=== PATIENT | female | born 1935 | race Hispanic/Latino ===

== ENCOUNTER 2017-04-13 19:22 | Inpatient (IN) | payer MEDICARE, OTHER ==
--- NOTE | 2017-04-13 20:02 | ED PDOC ---
Arrival/HPI - General Chief Complaint: GI Problem Time Seen by Provider: 04/13/17 19:23 Historian: Patient - History of Present Illness Narrative History of Present Illness (Text): 04/13/17 20:14 An 81 year old female, whose past medical history includes hypertension, chronic kidney disease, atrial fibrillation (not on anticoagulants) and iron deficiency, presents to the emergency department complaining of nausea and vomiting for the past few days. Patient reports decrease in appetite, dyspnea on exertion but denies any fevers, chills, abdominal pain, chest pain or any other complaints at this time. Time/Duration: < week Symptom Onset: Sudden Symptom Course: Unchanged Activities at Onset: Rest Context: Home Past Medical History - Provider Review Nursing Documentation Reviewed: Yes - Infectious Disease Hx of Infectious Diseases: None - Cardiac Hx Congestive Heart Failure: Yes Hx Hypertension: Yes - Pulmonary Hx Respiratory Disorders: No - Neurological Hx Neurological Disorder: No - HEENT Hx Cataracts: Yes (both removed) - Renal Other/Comment: history of kidney issues - Endocrine/Metabolic Hx Endocrine Disorders: No - Hematological/Oncological Hx Anemia: Yes - Musculoskeletal/Rheumatological Hx Arthritis: Yes - Gastrointestinal Hx Gastrointestinal Disorders: No - Genitourinary/Gynecological Hx Genitourinary Disorders: No - Psychiatric Hx Psychophysiologic Disorder: No Hx Substance Use: No - Surgical History Other/Comment: tonsilectomy - Anesthesia Hx Anesthesia: Yes Hx Anesthesia Reactions: No Hx Malignant Hyperthermia: No Family/Social History - Physician Review Nursing Documentation Reviewed: Yes Family/Social History: No Known Family HX Smoking Status: Never Smoked Hx Alcohol Use: No Hx Substance Use: No Allergies/Home Meds Allergies/Adverse Reactions: Allergies febuxostat Allergy (Verified 11/02/16 02:30) RASH Home Medications: Home Meds Medication Instructions Recorded Confirmed Epoetin Carroll [Procrit] 20,000 unit SUBCUT TUE 07/03/12 04/13/17 Aspirin [Ecotrin] 325 mg PO DAILY 11/03/15 04/13/17 Valsartan/Hydrochlorothiazide 1 each PO DAILY 10/27/16 04/13/17 [Diovan Hct 320-25 mg Tablet] Allopurinol [Zyloprim] 100 mg PO BID 04/13/17 04/13/17 Review of Systems - Physician Review All systems were reviewed & negative as marked: Yes - Review of Systems Constitutional: absent: Fevers, Other (chills) Respiratory: absent: SOB Cardiovascular: ROBERSON. absent: Chest Pain Gastrointestinal: Nausea, Vomiting, Appetite Changes (decrease). absent: Abdominal Pain Neurological: absent: Headache Physical Exam Vital Signs Reviewed: Yes Vital Signs Temp Pulse Resp BP Pulse Ox 04/13/17 23:36 87 16 114/61 95 04/13/17 20:44 79 18 131/69 98 04/13/17 19:33 18 04/13/17 19:31 97.8 F 88 16 133/70 98 Temperature: Afebrile Blood Pressure: Normal Pulse: Regular Respiratory Rate: Normal Appearance: Positive for: Well-Appearing, Non-Toxic, Comfortable Pain Distress: None Mental Status: Positive for: Alert and Oriented X 3 - Systems Exam Head: Present: Atraumatic, Normocephalic Pupils: Present: PERRL Extroacular Muscles: Present: EOMI Conjunctiva: Present: Normal Mouth: Present: Moist Mucous Membranes Neck: Present: Normal Range of Motion Respiratory/Chest: Present: Clear to Auscultation, Good Air Exchange. No: Respiratory Distress, Accessory Muscle Use Cardiovascular: Present: Tachycardic Abdomen: Present: Normal Bowel Sounds. No: Tenderness, Distention, Peritoneal Signs Back: Present: Normal Inspection Upper Extremity: Present: Normal Inspection. No: Cyanosis, Edema Lower Extremity: Present: Normal Inspection, Normal ROM. No: Edema Neurological: Present: GCS=15, CN II-XII Intact, Speech Normal Skin: Present: Warm, Dry, Normal Color. No: Rashes Psychiatric: Present: Alert, Oriented x 3, Normal Insight, Normal Concentration Medical Decision Making ED Course and Treatment: 04/13/17 20:00 Impression: An 81 year old female with nausea and vomiting. Plan: -- EKG -- chest xray -- labs -- Reassess and disposition Prior Visits: Notes and results from previous visits were reviewed. Patient last reported to the emergency department on 10/27/16 for evaluation of shortness of breath upon exertion. Patient discharged on 11/01/16. Progress Notes: Reviewed EKG, a fib at 85 bpm[address] Non-specific ST/T wave changes. 04/13/17 23:15 Reviewed radiology, Chest X-ray shows: - Cardiomegaly, with possible mild/early pulmonary vascular congestion. No evidence diffuse pulmonary edema. Recommend clinical correlation. - Suspect a hiatal hernia. - See above for remaining findings. 04/13/17 23:[address] Waite, who is aware and agrees with plan. States to place pt under Dr. Georges's service. Pt will go to telemetry observation for CHF and intractable vomiting. - Lab Interpretations Lab Results: 04/13/17 20:10 04/13/17 20:10 Lab Results 04/13/17 20:10: WBC 15.2 H D, RBC 3.71, Hgb 10.6 L, Hct 36.5, MCV 98.4, MCH 28.6 , MCHC 29.0 L, RDW 20.6 H, Plt Count 470 H, MPV 11.6 H 04/13/17 20:10: Sodium 140, Potassium 4.6, Chloride 105, Carbon Dioxide 26, Anion Gap 14, BUN 78 H, Creatinine 1.6 H, Est GFR ( Amer) 38, Est GFR ( Non-Af Amer) 31, Random Glucose 88, Calcium 9.3, Total Bilirubin 0.9, AST 66 H, ALT 29, Alkaline Phosphatase 98, Lactate Dehydrogenase 4754 H, Total Creatine Kinase 34 L, Troponin I 0.06, NT-Pro-B Natriuret Pep 55844 H, Total Protein 6.8 , Albumin 3.7, Globulin 3.1, Albumin/Globulin Ratio 1.2 04/13/17 20:10: PT 13.2 H, INR 1.22 H, APTT 30.1 I have reviewed the lab results: Yes - RAD Interpretation Narrative RAD Interpretations (Text): Chest X-ray shows: LIMITATIONS: Patient rotation. The left costophrenic angle is not included on the radiograph. LUNGS: Mild fullness of the central/perihilar pulmonary vessels is seen. This could be secondary to mild/early pulmonary vascular congestion. There is no evidence of diffuse pulmonary interstitial edema. No evidence of significant focal consolidation/infiltrate in the lungs. PLEURAL SPACE: No pneumothorax or pleural effusions seen, although the left costophrenic sulcus is not seen. HEART: Heart appears moderately to markedly enlarged. Heart size is not significantly changed. MEDIASTINUM: Round retrocardiac density is seen, which has central lucency. This is suspicious for a hiatal hernia. Mediastinal contour appears grossly normal, allowing for patient rotation. BONES/JOINTS: No acute bony abnormality visualized. VASCULATURE: Thoracic aorta is ectatic and calcified. IMPRESSION: - Cardiomegaly, with possible mild/early pulmonary vascular congestion. No evidence diffuse pulmonary edema. Recommend clinical correlation. - Suspect a hiatal hernia. - See above for remaining findings. Radiology Orders: 04/13/17 19:50 CHEST PORTABLE [RAD] Stat Panel Gluer: Radiologist - EKG Interpretation Interpreted by ED Physician: Yes Type: 12 lead EKG - Medication Orders Current Medication Orders: Ondansetron HCl (Zofran Inj) 4 mg IVP Q4H PRN PRN Reason: Nausea/Vomiting Stop: 04/14/17 09:00 Discontinued Medications Ondansetron HCl (Zofran Inj) 4 mg IVP ONCE ONE Stop: 04/13/17 22:15 Last Admin: 04/13/17 22:28 Dose: 4 mg - Scribe Statement The provider has reviewed the documentation as recorded by the Anshu Mckeon Provider Scribe Attestation: All medical record entries made by the Augustaibe were at my direction and personally dictated by me. I have reviewed the chart and agree that the record accurately reflects my personal performance of the history, physical exam, medical decision making, and the department course for this patient. I have also personally directed, reviewed, and agree with the discharge instructions and disposition. Disposition/Present on Arrival - Present on Arrival Any Indicators Present on Arrival: No History of DVT/PE: No History of Uncontrolled Diabetes: No Urinary Catheter: No History of Decub. Ulcer: No History Surgical Site Infection Following: None - Disposition Have Diagnosis and Disposition been Completed?: Yes Diagnosis: Intractable vomiting, CHF (congestive heart failure), Renal insufficiency Disposition: HOSPITALIZED Disposition Time: 00:01 Patient Plan: Observation Condition: STABLE Discharge Instructions (ExitCare): Heart Failure (ED) Referrals: Sharmila Waite MD [Primary Care Provider] - Follow up with primary
[2017-04-13 20:36] LABS: ALB/GLOB RATIO 1.2 (1.1-1.8); BILIRUBIN,TOTAL 0.9 mg/dL (0.2-1.3); CALCIUM 9.3 mg/dL (8.4-10.5); POTASSIUM 4.6 mmol/L (3.6-5.0); TOTAL PROTEIN 6.8 g/dL (5.8-8.3)
[2017-04-13 20:37] LABS: HEMATOCRIT 36.5 % (36.0-48.0); MEAN CELL VOLUME 98.4 fL (80.0-105.0); MEAN CORPUSCULAR HEMOGLOBIN 28.6 pg (25.0-35.0); MEAN PLATELET VOLUME 11.6 fl (7.0-11.0); RED CELL DISTRIBUTION WIDTH 20.6 % (11.5-14.5); WHITE BLOOD COUNT 15.2 10^3/ul (4.5-11.0)
[2017-04-13 20:38] LABS: INR 1.22 (0.93-1.08); PARTIAL THROMBOPLASTIN TIME 30.1 Seconds (23.7-30.8)
[2017-04-13 20:48] LABS: TROPONIN I 0.06 ng/mL
--- NOTE | 2017-04-13 22:44 | RAD ---
EXAM: XR Chest, 1 View CLINICAL HISTORY: 81 years old, female; Pain; Chest pain; Additional info: Nausea /vomiting TECHNIQUE: Frontal view of the chest. EXAM DATE/TIME: 04/13/2017 7:50 PM COMPARISON: Prior chest radiographs of 11/01/2016 FINDINGS: LIMITATIONS: Patient rotation. The left costophrenic angle is not included on the radiograph. LUNGS: Mild fullness of the central/perihilar pulmonary vessels is seen. This could be secondary to mild/early pulmonary vascular congestion. There is no evidence of diffuse pulmonary interstitial edema. No evidence of significant focal consolidation/infiltrate in the lungs. PLEURAL SPACE: No pneumothorax or pleural effusions seen, although the left costophrenic sulcus is not seen. HEART: Heart appears moderately to markedly enlarged. Heart size is not significantly changed. MEDIASTINUM: Round retrocardiac density is seen, which has central lucency. This is suspicious for a hiatal hernia. Mediastinal contour appears grossly normal, allowing for patient rotation. BONES/JOINTS: No acute bony abnormality visualized. VASCULATURE: Thoracic aorta is ectatic and calcified. IMPRESSION: - Cardiomegaly, with possible mild/early pulmonary vascular congestion. No evidence diffuse pulmonary edema. Recommend clinical correlation. - Suspect a hiatal hernia. - See above for remaining findings.
[2017-04-14 02:34] LABS: URINE BILIRUBIN NEGATIVE (NEGATIVE); URINE BLOOD SMALL (NEGATIVE); URINE GLUCOSE (UA) NEGATIVE (NEGATIVE); URINE KETONE NEGATIVE (NEGATIVE); URINE LEUKOCYTE ESTERASE NEGATIVE Leu/uL (NEGATIVE); URINE PROTEIN >=300 mg/dL (<30 mg/dL); URINE UROBILINOGEN 0.2 E.U./dL (<1 E.U./dL)
[2017-04-14 02:36] LABS: URINE APPEARANCE CLEAR (CLEAR)
[2017-04-14 02:37] LABS: URINE RBC 15 - 20 /hpf (0-2)
[2017-04-14 03:23] VITALS: BMI 47.7
[2017-04-14] MEDS ORDERED: metOLazone 2.5 MG TAB PO SCH ×2 (09:00→09:37)
--- NOTE | 2017-04-14 10:25 | CON ---
DATE: 04/14/2017 INDICATIONS: Shortness of breath, nausea, vomiting, chronic atrial fibrillation. HISTORY OF PRESENT ILLNESS: This is an 81-year-old woman known to me from a prior admission in 10/2016, admitted with several weeks of nausea and vomiting with poor appetite and a recent increasing dyspnea on exertion. She is admitted through the Emergency Room and is now on telemetry. She feels better this morning, but still notes mild nausea. Her breathing is better. There was no chest pain, orthopnea, PND, syncope, presyncope, lightheadedness, dizziness, vertigo, palpitations, fever, chills, cough, sputum production, hemoptysis, abdominal pain, diarrhea, constipation, melena. She does note chronic lower extremity edema which is a bit worse. PAST MEDICAL HISTORY: Notable for chronic atrial fibrillation. She is not on anticoagulation because it was judged to be too risky in the past. She has a history of hypertension, moderate aortic stenosis on her echocardiogram which also showed mild mitral regurgitation, moderate tricuspid regurgitation, moderate pulmonary hypertension and normal left ventricular function. She has chronic kidney disease, anemia, myeloproliferative disorder, gout, degenerative joint disease, urinary tract infections, cataracts, obesity. There is no history of rheumatic fever, myocardial infarction, angina, stroke, TIA or diabetes. CURRENT MEDICATIONS INCLUDE: Coreg, torsemide, Diovan HCT, aspirin, Zaroxolyn, allopurinol. ALLERGIES: SHE NOTES AN ALLERGY TO FEBUXOSTAT WHICH CAUSES A RASH. She gets Procrit injections by Dr. Waite. SOCIAL HISTORY: She lives at home. 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 She does not smoke. She does not drink. FAMILY HISTORY: Noncontributory. REVIEW OF SYSTEMS: Ten point review of systems otherwise unremarkable except as noted above. PHYSICAL EXAMINATION: GENERAL: She is a well-developed elderly woman lying in bed on telemetry in no acute distress. VITAL SIGNS: Notable for atrial fibrillation at 76 beats per minute. She is afebrile. Blood pressure 108/65, respirations 18-20, O2 sat 95% - 98% on room air and nasal cannula. HEENT: Reveals no neck vein distention, thyromegaly, or carotid bruit. Mucous membranes moist. Conjunctivae are pink. NECK: Supple. CHEST: Lung reese diminished breath sounds at the bases. HEART: Revealed an irregular rhythm, normal 1st and 2nd heart sounds. Soft systolic ejection murmur heard best along the left sternal border. PMI not palpable. ABDOMEN: Obese, soft, benign. Bowel sounds present. No mass, organomegaly, tenderness, rebound, guarding, CVA tenderness or palpable abdominal aortic aneurysm. EXTREMITIES: Revealed chronic lower extremity edema. NEUROLOGIC: She is awake, alert and oriented. SKIN: Warm and dry. No rash or cellulitis. PSYCHIATRIC: Normal as to mood and affect. LABORATORY AND IMAGING: A portable chest x-ray revealed cardiomegaly with possible mild pulmonary vascular congestion. EKG demonstrates atrial fibrillation, right bundle branch block, nonspecific ST wave changes, no change from previous EKG. White count 15,200, hemoglobin 10.6, hematocrit 36.5, platelet count 470,000. PT 13.2, INR 1.22, PTT 30.1. Electrolytes normal. BUN 78, creatinine 1.6. AST is 66, which is elevated, ALT is 29, alkaline phosphatase 98. CK 34, troponin 0.06. BNP 40,700. Urinalysis is noted. IMPRESSION: The patient is an 85-year-old woman admitted with shortness of breath, nausea and vomiting, which has become progressive. She is in chronic atrial fibrillation with a history of hypertension, aortic stenosis, chronic kidney disease, anemia, myeloproliferative disorder, gout and urinary tract infections. At this time, I agree with current plans. She is on telemetry. I would resume her usual medications including aspirin, Coreg, losartan to substitute for Diovan, Lasix to substitute for torsemide, Zaroxolyn and allopurinol. I will review her old records. We will monitor I's and O's, check stool for occult blood. She will have a GI evaluation. We will attempt to diurese her and monitor renal function carefully. I will follow along with you. I will order an echocardiogram. I will make additional recommendations based on her clinical course. Ric Howe MD cc: [id number] TT: 04/14/2017 10:24:43 Confirmation # [id number] Dictation # [id number] jn ANNA
--- NOTE | 2017-04-14 10:27 | CARD ---
APPROVED REPORT EKG Measurement Heart [id number] <Conclusion> Atrial fibrillation IRBBB NSSTW changes No change
--- NOTE | 2017-04-14 11:03 | CON ---
DATE: 04/14/2017 The patient admitted for Dr. Bruce Montano and Dr. Waite. REFERRING PHYSICIAN: Dr. Montano. REASON FOR CONSULTATION: Evaluation of a patient known to us from past evaluations who presents with prerenal azotemia in the setting of hypervolemia and CHF. HISTORY OF PRESENT ILLNESS: The patient is a pleasant 81-year-old white female with a history of hyp ertension, history of chronic kidney disease stage III/IV, history of atrial fibrillation, history of anemia, iron deficiency anemia, history of myelodysplastic syndrome, history of secondary hyperparat hyroidism, who presents with increasing shortness of breath and diarrhea. The patient is noted in th e Emergency Room to be in mild congestive heart failure. Her BUN was 70 with a creatinine of 1.6. T hese levels are actually better than her baseline levels as the patient remains on diuretic therapy w ith advanced prerenal azotemia. We are asked to evaluate the patient and to help manage her diuretic therapy and fluid management. PAST MEDICAL HISTORY: Significant for hypertension, history of chronic kidney disease stage III/IV w ith prerenal azotemia, history of atrial fibrillation, history of anemia, iron deficiency anemia, and myelodysplastic syndrome. History of secondary hyperparathyroidism. MEDICATIONS AT HOME: Include that of Procrit, Coreg, Ecotrin, Zyloprim, Zaroxolyn, Diovan/hydrochlor othiazide, Demadex, and Coreg. ALLERGIES: THE PATIENT IS ALLERGIC TO FEBUXOSTAT. MEDICATIONS: Presently in the hospital include that of aspirin, Coreg, losartan, Lasix IV, metolazon e, Zaroxolyn and allopurinol. SOCIAL HISTORY: No history of cigarette smoking, no history of alcohol use. FAMILY HISTORY: Reviewed with patient. Noncontributory. REVIEW OF SYSTEMS: GENERAL: The patient states weight has been stable. ENT: Denies any hearing or visual problems. PULMONARY: Positive for exertional dyspnea. CARDIAC: No chest pains, no palpitations. GASTROINTESTINAL: Positive for diarrhea. No nausea, no vomiting, no constipation, no abdominal pain . GENITOURINARY: Positive history of chronic kidney disease. ENDOCRINE: No history of diabetes. MUSCULOSKELETAL: No complaints. NEUROLOGIC: No past history of CVA, TIA, seizures or syncope. HEMATOLOGIC AND ONCOLOGIC: Positive anemia. Positive myelodysplastic syndrome. PSYCHIATRIC: History is negative. PHYSICAL EXAMINATION: GENERAL: The patient is currently sitting up in a chair. She appears to be comfortable. No shortne ss of breath. VITAL SIGNS: Blood pressure is 108/65, temperature 98.5, respiratory rate is 20 with a pulse of 76. Oxygen saturation is 95% on 3 L of oxygen nasal cannula. HEENT: Shows her to be normocephalic, atraumatic. Conjunctivae are pale. Sclerae are nonicteric. Pupils equal, reactive to light and accommodation. Extraocular muscles are intact. Posterior pharyn x is normal. NECK: Supple without neck vein distention. No thyromegaly, no lymphadenopathy, no bruits. CHEST: Clear to auscultation and percussion with decreased breath sounds at the bases, no audible ra les, rhonchi or wheezing. CARDIOVASCULAR: Shows an irregular S1, S2, aortic stenosis, mitral regurgitation, tricuspid regurgit ation, no rub. ABDOMEN: Obese. Mild distention. Soft, nontender. Bowel sounds are normal. EXTREMITIES: Show 2+ to 3+ pitting edema of her lower extremity from the ankle up to the mid thigh. Diminished lower extremity pulses secondary to edema. LABORATORY DATA AND IMAGING: Admitting chest x-ray showed cardiomegaly with pulmonary vascular conge stion consistent with mild CHF. Admitting EKG showed atrial fibrillation, rate controlled. Labs: C BC: White blood cell count 15.2, hemoglobin 10.6, platelet count is 470,000. Coags 13.2. PT/INR 1. 22, PTT 30.1. Chemistries show normal electrolytes. BUN 70 with a creatinine of 1.6. Calcium level was 9.3. Slight elevation of AST at 66. LDH is elevated at 4754. Troponins are essentially negati ve. BNP is elevated at 40,700. Albumin is 3.7. Urinalysis shows 4+ protein with 15-20 red blood ce lls per high power field, and 2-5 white blood cells per high power field. Microbiology: No data brennan ilable. ASSESSMENT: 1. Prerenal azotemia. The patient is actually below her baseline levels. The patient is maintained in a very advanced prerenal state to help control her lower extremity edema. During previous admiss ions, she has had BUN in the 80 to low 100 range with creatinines in the lower 2 range. In all likel chester, this pattern will redevelop as the patient is being diuresed with IV Lasix and Zaroxolyn. I w ill increase her Zaroxolyn to 5 mg a day. 2. Underlying chronic kidney disease stage III/IV. 3. Atrial fibrillation, rate controlled. The patient is not receiving any anticoagulation. 4. History of anemia, iron deficiency anemia and myelodysplastic syndrome. This is being managed by Dr. Waite and Dr. Montano. 5. History of secondary hyperparathyroidism. I will check a PTH and vitamin D level. We will check a phosphorus level to see whether or not the patient requires binders. The patient should be mainta ined on a renal diet. 6. Hypertension. Blood pressure is presently controlled on present medical therapy. PLAN: 1. Need accurate I's and O's and daily weights. 2. Check PTH, vitamin D25 hydroxy level, phosphorus level and continue renal diet. 3. Keep patient in negative fluid balance. We will allow her BUN and creatinine to drift higher in order to help treat her CHF and decrease her lower extremity edema. I will, as noted above, increase the Zaroxolyn dose to 5 mg a day. 4. Monitor labs on a daily basis. 5. Continue to monitor patient on telemetry. 6. Cardiology evaluation, perhaps repeat echocardiogram for evaluation of her valvular heart disease , /MR/TR and to reevaluate her ejection fraction in light of her CHF. Thank you for letting me partake and share in the care of your patient. Miles Mcgowan MD cc: [id number] TT: 04/14/2017 11:02:02 Confirmation # [id number] Dictation # [id number] tn
[2017-04-14 11:45] LABS: ADD MANUAL DIFF? NO
[2017-04-14 11:54] LABS: BASO # 0.11 K/mm3 (0.0-2.0); BASO % 0.7 % (0.0-3.0); EOS # 0.1 (0.0-0.7); EOS % 0.3 % (1.5-5.0); GRAN # 11.66 (1.4-6.5); GRAN % 76.4 % (50.0-68.0); HEMATOCRIT 37.2 % (36.0-48.0); LYMPH % 13.4 % (22.0-35.0); MEAN CELL VOLUME 100.8 fL (80.0-105.0); MEAN CORPUSCULAR HGB CONC 28.8 g/dl (31.0-37.0); MEAN PLATELET VOLUME 12.2 fl (7.0-11.0); MONO # 1.4 (0.1-0.6); MONO % 9.2 % (1.0-6.0); PLATELET COUNT 469 10^3/uL (120.0-450.0); RED CELL DISTRIBUTION WIDTH 20.8 % (11.5-14.5); WHITE BLOOD COUNT 15.3 10^3/ul (4.5-11.0)
[2017-04-14 12:17] LABS: T4 9.9 ug/dL (5.5-11.0)
[2017-04-14 12:31] LABS: THYROID STIMULATING HORMONE 4.02 mIU/mL (0.46-4.68)
[2017-04-14 13:03] LABS: ALB/GLOB RATIO 1.3 (1.1-1.8); BILIRUBIN,TOTAL 0.8 mg/dL (0.2-1.3); CALCIUM 9.1 mg/dL (8.4-10.5); POTASSIUM 5.3 mmol/L (3.6-5.0); TOTAL PROTEIN 6.3 g/dL (5.8-8.3)
--- NOTE | 2017-04-14 16:44 | CON ---
DATE: 04/14/2017 REASON FOR CONSULTATION: Nausea, vomiting, history of ulcers in the past, anemia. HISTORY OF PRESENT ILLNESS: This 81-year-old pleasant lady with multiple medical problems with hyper tension, chronic kidney disease stage III/IV, history of atrial fibrillation, anemia. The patient di d have an endoscopy done on 10/31/2016. She was found to have a hiatus hernia, 8 cm size large with [place] ulcers and also few superficial gastric ulcers in the body and antrum which were thought to be secondary to NSAID induced. The patient also had a grade 1 esophageal varices in the lower 3rd of the esophagus. The patient was nauseous The patient has been maintained H2 blockers. She was advi sed to be on long-term PPI, but home medication list does not mention proton pump inhibitors. The pa sharee is on aspirin and also allopurinol now. She presented with congestive heart failure, was nause ous, reduced p.o. intake. Other past medical history is significant as above. History of atrial fib rillation, not on anticoagulation, history of myelodysplastic syndrome, secondary hyperparathyroidism . PRESENT MEDICATIONS REVIEWED: Did not show any PPI. ALLERGIES: SHE IS ALLERGIC TO FEBUXOSTAT. SOCIAL HISTORY: Denies smoking or alcohol. FAMILY HISTORY: Noncontributory. REVIEW OF SYSTEMS: Positive as above. The patient has been complaining of episodes of loose bowel m ovements which she said has been chronic for a long time, did not have any colonoscopic evaluation. She noticed at times the blood SC. The patient did not have any colonoscopy during the last admissio n, in view of these ulcerations that we found and the patient also very reluctant to have the prepara tion for the procedure. PHYSICAL EXAMINATION: GENERAL: The patient is lying on the bed, not in acute distress. VITAL SIGNS: Temperature is 97.3, pulse 90, blood pressure is 119/64, respirations 18. HEENT: Atraumatic, anicteric. NECK: Supple. HEART: S1, S2 heard. LUNGS: Bilateral air entry present, reduced at the bases. HEART: S1, S2 heard. EXTREMITIES: Chronic bilateral leg edema present. NEUROLOGIC: Alert, oriented. Moves all the extremities. LABORATORY DATA: Hemoglobin 10.7, hematocrit 37.2, WBC 15.3, MCV 100.8, platelet count 469. Delivery Agent ry showed BUN 78, creatinine 1.8. The patient did have a CAT scan of the abdomen and pelvis with ora l contrast on 10/30 which was reviewed. It showed hepatosplenomegaly, nodular structure in the epiga stric area and retroperitoneum nodes or varices, there is no hepatosplenomegaly, no gallstones, no as cites, but it is ____ IMPRESSION: This 81-year-old patient with probable cirrhosis of the liver, probably a cardiac cirrho sis of the liver, myelodysplasia, admitted with congestive heart failure, nausea, reduced p.o. intake . The medication list reviewed, did not reveal any proton pump inhibitor. The patient has a history of ulcers, both [place] ulcers and antral ulcerations. The likely cause of the anemia could be mul tifactorial, in her case MCV is over 100. RECOMMENDATION: 1. To follow up endoscopy to evaluate the ulcer. 2. Start the patient on PPI. 3. Close followup of the hemoglobin and hematocrit. 4. Would consider repeating the CT with the p.o. contrast. 5. Other comorbidities, her CHF, atrial fibrillation, not on anticoagulation. We will continue to closely follow up her care and suggest further management based on the clinical c ourse. Jacek Metzger MD cc: [id number] TT: 04/14/2017 16:43:51 Confirmation # [id number] Dictation # [id number] jn
[2017-04-14] MEDS: Pantoprazole 20 mg EC Tab PO SCH (17:03)
[2017-04-14 19:24] LABS: HEMATOCRIT 37.1 % (36.0-48.0); MEAN CELL VOLUME 101.1 fL (80.0-105.0); MEAN CORPUSCULAR HEMOGLOBIN 28.9 pg (25.0-35.0); MEAN CORPUSCULAR HGB CONC 28.6 g/dl (31.0-37.0); MEAN PLATELET VOLUME 11.9 fl (7.0-11.0); RED CELL DISTRIBUTION WIDTH 20.8 % (11.5-14.5); WHITE BLOOD COUNT 15.6 10^3/ul (4.5-11.0)
--- NOTE | 2017-04-15 00:56 | CP.PCM.PN ---
Subjective - Date & Time of Evaluation Date of Evaluation: 04/15/17 Time of Evaluation: 00:41 - Subjective Subjective: called by nurse pt ,s BP is 80/34. hr is 82 pt denies complaints,no cp no sob .pt has mds h/h is 10/37.also pt has chf and on couple of meds .wbc is 15.6. Objective - Vital Signs/Intake and Output Vital Signs (last 24 hours): Temp Pulse Resp BP Pulse Ox 98 F 82 20 87/47 L 98 04/15/17 00:01 04/15/17 00:22 04/15/17 00:01 04/15/17 00:22 04/15/17 00:01 - Medications Medications: Current Medications Allopurinol (Zyloprim) 100 mg PO BID [facility] Last Admin: 04/14/17 17:01 Dose: 100 mg Aspirin (Aspirin) 325 mg PO DAILY [facility] Last Admin: 04/14/17 11:30 Dose: 325 mg Carvedilol (Coreg) 3.125 mg PO BID [facility] Last Admin: 04/14/17 17:20 Dose: Not Given Furosemide (Lasix) 40 mg IVP Q12 [facility] Last Admin: 04/14/17 11:29 Dose: 40 mg Losartan Potassium (Cozaar) 100 mg PO DAILY [facility] Last Admin: 04/14/17 11:30 Dose: 100 mg Metolazone (Zaroxolyn) 5 mg PO DAILY [facility] Last Admin: 04/14/17 11:30 Dose: 5 mg Pantoprazole Sodium (Protonix Ec Tab) 20 mg PO ACB [facility] Last Admin: 04/14/17 17:03 Dose: 20 mg - Labs Labs: 04/14/17 19:00 04/14/17 11:30 PT 13.2 Seconds (9.9-11.8) H 04/13/17 20:10 INR 1.22 (0.93-1.08) H 04/13/17 20:10 APTT 30.1 Seconds (23.7-30.8) 04/13/17 20:10 - Constitutional Appears: No Acute Distress - Head Exam Head Exam: NORMOCEPHALIC - Eye Exam Eye Exam: Normal appearance - Neck Exam Neck Exam: Full ROM - Respiratory Exam Respiratory Exam: Rales - Cardiovascular Exam Cardiovascular Exam: RRR, +S1, +S2 - Rectal Exam Rectal Exam: Deferred - Neurological Exam Neurological Exam: Awake, CN II-XII Intact, Oriented x3 - Psychiatric Exam Psychiatric exam: Normal Affect - Skin Skin Exam: Warm Assessment and Plan - Assessment and Plan (Free Text) Assessment: hypotension /chf aortic stenosis on mutiple meds .echo pending. mds .wbc elevated.urine clear .chest x ray shows chf. Plan: repeat bp improved to 87 systolic. will f/u bp . procalcitonine. blood c/s.
--- NOTE | 2017-04-15 04:57 | HP ---
The patient was admitted through the Emergency Room is in 265, bed 1. REASON FOR ADMISSION HISTORY OF PRESENT ILLNESS: The patient's niece had called me earlier today dania t she was becoming increasingly difficult for her to get around in the house. She was having more sw elling. The patient had been having persistent queasiness and heaves without actually throwing up fo r the last 2 weeks with very poor intake, with progressive leg edema as well. The patient was seen i n the ER and thought to be based on the blood work to have mild prerenal azotemia, but also congestiv e heart failure based on the chest x-ray and leg edema consistent with pulmonary hypertension and bot h right and left-sided heart failure. The patient was admitted for further management. This is an 81-year-old white female who has been known to me for the last 5 years when she had initia lly presented with anemia, leukocytosis, thrombocytosis. At that time, she will be labeled as having myeloproliferative disorder after initial workup including bone marrow aspiration biopsy. The patie nt had JAK2 mutation positive disease. The patient has been getting intermittent IV therapy, intermi ttent Procrit for anemia which has multifactorial causes including CKD III/IV chronic kidney disease. The patient also has atrial fibrillation with pulmonary hypertension, history of iron deficiency, h istory of secondary hyperparathyroidism, now admitted with increasing shortness of breath, heaves and patient tells me that she has been having some frequency of bowel movements which is dark in color c onsistent more with an upper GI evolving bleed. The patient was noted to be in the ER in mild conges tive heart failure, BUN was 70, creatinine 1.6. These actual levels were slightly better than her pr ior values where the creatinine was up to 3.4. 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 PAST MEDICAL HISTORY: Significant for hypertension, history of chronic kidney disease stage III/IV w ith prerenal azotemia, history of atrial fibrillation, history of anemia, iron deficiency, myeloproli ferative disorder JAK2 positive, history of secondary hyperparathyroidism. MEDICATIONS: At home include Procrit, Coreg, Ecotrin, Zyloprim, Zaroxolyn, Diovan, hydrochlorothiazi de, Demadex and Coreg. ALLERGIES: ULORIC. MEDICATIONS CURRENTLY IN THE HOSPITAL: The patient is on aspirin, Coreg, losartan, IV Lasix, metolaz one, Zaroxolyn and allopurinol. SOCIAL HISTORY: There is no history of alcohol or tobacco consumption. FAMILY HISTORY: Noncontributory. She has no children. She has several nieces. REVIEW OF SYSTEMS: GENERAL: The patient states that she has not been eating well for several weeks now. Denies any his tory of visual problems. PULMONARY: The patient is complaining of exertional dyspnea at this time. CARDIAC: Denies any history of chest pains or palpitations. GASTROINTESTINAL: The patient is having heaves without any significant nausea, vomiting. Also has be en complaining of loose bowel movements, which are very dark in color. GENITOURINARY: Positive for history of chronic kidney disease. ENDOCRINE: No history of diabetes MUSCULOSKELETAL: The patient has severe DJD involving both knees, for which she is just taking Tylen ol and sometimes tramadol and more recently oxycodone for pain. NEUROLOGIC: No history of CVA, TIA, seizures or syncope. HEMATOLOGIC AND ONCOLOGY: The patient's history is positive for anemia, myeloproliferative disorder. PSYCHIATRIC HISTORY: Negative. PHYSICAL EXAMINATION: GENERAL: The patient is sitting up in the chair. She appears to be comfortable. Denies any history of shortness of breath. Tells me that her legs have become more swollen and more edema extending all the way up to her thighs. The patient has been having heaves, unable to keep food down for the last 2 weeks. The patient has been just taking fluids. VITAL SIGNS: Stable. Blood pressure is 108/65. T-max is 98.4, respirations 20 with a pulse of 76, O2 sat is 95% on 2 L of nasal cannula. HEENT: Head is normocephalic, atraumatic. Conjunctivae pale. Sclerae are anicteric. Pupils are eq ually reactive to light and accommodation. Extraocular muscles are intact. Posterior pharynx is nor mal, no oropharyngeal lesions are seen. NECK: Supple without any neck vein distention. No thyromegaly. No lymphadenopathy or bruits. LUNGS: Relatively clear to percussion and auscultation with decreased breath sounds at the bases. N o audible rales, rhonchi, or wheezing is heard. CARDIOVASCULAR: Shows an irregular heart rate of S1 and S2, aortic stenosis, mitral regurgitation, t ricuspid regurgitation. No rub. ABDOMEN: Obese, mildly distended, soft, nontender. Bowel sounds are normal. The patient has centra l truncal obesity. EXTREMITIES: Show 3+ pitting edema of the lower extremities from the ankle to the mid thigh. Dimini shed lower extremity pulses secondary to the edema. LABORATORY DATA AND IMAGING: The patient's chest x-ray shows cardiomegaly with pulmonary vascular co ngestion consistent with mild CHF. Admitting EKG shows atrial fibrillation, rate controlled. Labs reveal a white count of 15.2; hemoglobin 10.6; platelet count is 470,000. Coags: PT/INR is 1.2 2, PTT is 30.1. Chemistry shows normal electrolytes, BUN is 70, creatinine of 1.6, calcium is 9.3 wi th slight elevation of AST 66, LDH is elevated at 4754. Troponins are negative. BNP is elevated at 40,700. Albumin is 3.7. Urinalysis is positive for 4+ protein with 15-20 RBCs per high-power field, 2-4 white cells per high-power field. ASSESSMENT NOTES AND PLAN: 1. The patient definitely has persistent nausea with heaves. No nausea. No vomiting. With loose b owel movements that are dark colored stools. Rule out upper gastrointestinal bleed that is constant. From the prior history, one would have to be concerned about recurrent bleed. 2. Prerenal azotemia. 3. Underlying chronic kidney disease stage III/IV. 4. Atrial fibrillation, rate controlled. 5. Myeloproliferative disorder, being managed with intermittent iron and Procrit for appropriate sharif nds. 6. History of secondary hyperparathyroidism, hypertension and being controlled by medical therapy. PLAN: The patient is going to need strict I's and O's. Consultation with both renal, cardiac have b een requested. GI consultation has also been requested for evaluation for possible endoscopy and col onoscopy. We need to check PTH, vitamin D levels and continue renal diet. The patient will be kept on a negative fluid balance and we will allow her BUN and creatinine to rise higher in order to help treat her CHF. The patient is a combination of both right and left-sided heart failure at least is c linically. Labs will have to be monitored on daily basis. Weight has to be monitored on daily basis . Cardiac evaluation is in process. Dr. Howe and Dr. Ellis have been managing the case. From the renal point of view, Dr. Mcgowan and are managing the case. We will follow very closel y over the next several days and hopefully we will be able to do the endoscopy and colonoscopy once t he patient has been maximally optimized over the next 48 hours. Sharmila Waite MD cc: [phone] TT: 04/15/2017 04:56:46 alden
[2017-04-15 07:33] LABS: HEMATOCRIT 35.9 % (36.0-48.0); MEAN CELL VOLUME 100.8 fL (80.0-105.0); MEAN CORPUSCULAR HEMOGLOBIN 28.4 pg (25.0-35.0); MEAN CORPUSCULAR HGB CONC 28.1 g/dl (31.0-37.0); MEAN PLATELET VOLUME 12.1 fl (7.0-11.0); RED CELL DISTRIBUTION WIDTH 20.7 % (11.5-14.5); WHITE BLOOD COUNT 12.7 10^3/ul (4.5-11.0)
[2017-04-15 07:41] LABS: ALB/GLOB RATIO 1.2 (1.1-1.8); BILIRUBIN,TOTAL 0.9 mg/dL (0.2-1.3); CALCIUM 8.7 mg/dL (8.4-10.5); PHOSPHOROUS 5.4 mg/dL (2.5-4.5); POTASSIUM 4.9 mmol/L (3.6-5.0)
--- NOTE | 2017-04-15 07:45 | CP.PCM.PN ---
Subjective - Date & Time of Evaluation Date of Evaluation: 04/08/17 Time of Evaluation: 07:00 - Subjective Subjective: Stable on 2R. BP's low during the night. No CP or SOB V/S noted. AF Lungs: clear Cor.: S1S2 Abd.: soft Ext.: + edema Neuro.: alert i/o N/A labs 04/14 noted: Cr. = 1.8, K+= 5.3 Objective - Vital Signs/Intake and Output Vital Signs (last 24 hours): Temp Pulse Resp BP Pulse Ox 97.4 F L 83 20 81/41 L 92 L 04/15/17 06:00 04/15/17 06:00 04/15/17 06:00 04/15/17 06:00 04/15/17 06:00 - Medications Medications: Current Medications Allopurinol (Zyloprim) 100 mg PO BID [facility] Last Admin: 04/14/17 17:01 Dose: 100 mg Aspirin (Aspirin) 325 mg PO DAILY [facility] Last Admin: 04/14/17 11:30 Dose: 325 mg Carvedilol (Coreg) 3.125 mg PO BID [facility] Last Admin: 04/14/17 17:20 Dose: Not Given Furosemide (Lasix) 40 mg IVP Q12 [facility] Last Admin: 04/14/17 11:29 Dose: 40 mg Losartan Potassium (Cozaar) 100 mg PO DAILY [facility] Last Admin: 04/14/17 11:30 Dose: 100 mg Metolazone (Zaroxolyn) 5 mg PO DAILY [facility] Last Admin: 04/14/17 11:30 Dose: 5 mg Pantoprazole Sodium (Protonix Ec Tab) 20 mg PO ACB [facility] Last Admin: 04/14/17 17:03 Dose: 20 mg - Labs Labs: 04/15/17 07:26 04/14/17 11:30 PT 13.2 Seconds (9.9-11.8) H 04/13/17 20:10 INR 1.22 (0.93-1.08) H 04/13/17 20:10 APTT 30.1 Seconds (23.7-30.8) 04/13/17 20:10 Assessment and Plan - Assessment and Plan (Free Text) Plan: Assessment: SOB/Nausea/Vomiting Hypotension AF CKD HBP Anemia Myeloproliferative disorder Gout DJD UTI's Cataracts Obesity Possible Cirrhosis Echo: , Mild MR, Mod. TR, Mod PH Plan: Hold diuretics and losartan for hypotension. Await AM labs. Check echo. As per Heme, GI and Renal Monitor: labs, I/Os, stool for OB, sats., etc.
[2017-04-15] MEDS: Pantoprazole 20 mg EC Tab PO SCH (08:04)
[2017-04-15 09:11] LABS: TROPONIN I 0.22 ng/mL
--- NOTE | 2017-04-15 10:05 | PN ---
DATE: 04/15/2017 SUBJECTIVE: The patient is currently seen on 2R. She is entirely comfortable. She is lying supine in bed. She has just completed breakfast. She has a significant 8-pound weight loss; however, her i ntake and output are not charted. MEDICATIONS: List reviewed. The patient is currently on aspirin, Coreg, Cozaar on hold, Lasix on ho ld for low blood pressure, Protonix, Zaroxolyn on hold for low blood pressure, and allopurinol. OBJECTIVE: INTAKE AND OUTPUT: Not charted. Her weight is down from 261 to 253 pounds and 3 ounces. VITAL SIGNS: Blood pressure has remained borderline low ranging from 81-86 systolic, diastolics rang ing from 34-47. Pulse is 83, temperature 97.4, respiratory rate is 20, pulse ox is 92%. HEENT: Shows her to be normocephalic, atraumatic. Conjunctivae are pale. Sclerae are nonicteric. NECK: Supple without neck vein distention. No thyromegaly, no lymphadenopathy, no bruits. CHEST: Clear to auscultation and percussion with slight decreased breath sounds at the bases. No ra les, no rhonchi, no wheezing. CARDIOVASCULAR: Shows an irregular S1, S2. Aortic stenosis, mitral regurgitation, tricuspid regurgi tation. No rub. ABDOMEN: Soft. Moderate obesity. Mild distention. Bowel sounds are normal. EXTREMITIES: Show significant reduction in her edema. She now has 1+ pitting edema of her lower ext remity bilaterally. LABORATORY DATA AND IMAGING: Admitting chest x-ray showed pulmonary vascular congestion consistent w ith mild CHF. Labs today show a hemoglobin of 10.1 with a white blood cell count of 12.7, platelet c ount is 441,000. Chemistries today show normal electrolytes. Potassium is now 4.9, down from 5.3. BUN is 80 with a creatinine of 2.3. This is slightly higher and as expected given the diuretic thera py and perhaps some mild hypotension. Glucose is 67. Calcium is 8.7 with a phosphorus of 5.4. Magn esium level is 2.0. LDH is 4284. Thyroid function tests are normal. ASSESSMENT: 1. Prerenal azotemia. The patient is still below her baseline levels. The patient is maintained on diuretic therapy given her history of congestive heart failure and lower extremity edema. During [facility] admissions, patient has had BUNs in the 80 to low 100 range with creatinines in the low 2 range. As noted in my initial note, this has redeveloped again and will likely continue with the need for di uretic therapy. At this point in time, diuretics are on hold because of her mild hypotension. She i s presently off IV Lasix and off p.o. Zaroxolyn. 2. Underlying chronic kidney disease stage III/IV. 3. History of atrial fibrillation, rate controlled. The patient is not receiving any anticoagulatio n. 4. History of anemia, iron deficiency anemia and myelodysplastic syndrome. This is being managed by Dr. Waite and Dr. Montano. 5. History of secondary hyperparathyroidism. Phosphorus level is elevated. The patient will contin ue a renal diet and we will start her on binder therapy. PTH and vitamin D level are pending. 6. History of hypertension. The patient is currently hypotensive. Blood pressure medication is on hold. Diuretics are on hold. The patient will continue to be monitored on telemetry. PLAN: 1. Need to follow accurate I's and O's. This once again has been discussed with the staff. 2. Check PTH and vitamin D 25-hydroxy level. Phosphorus level is elevated at 5.4. The patient will be started on binder therapy. 3. Continue to monitor accurate I's and O's. 4. Continue to monitor daily weights. 5. Continue to monitor patient on telemetry. 6. Cardiology followup appreciated. Miles Mcgowan MD cc: [id number] TT: 04/15/2017 10:04:45 Confirmation # [id number] Dictation # [id number] en
--- NOTE | 2017-04-15 16:56 | PN ---
DATE: 04/15/2017 This is an addendum. SUBJECTIVE: This patient was seen and evaluated earlier today. The patient is comfortable, no vomit ing, no abdominal pain. OBJECTIVE: VITAL SIGNS: Temperature is 98, pulse is 97, blood pressure 124/64. HEENT: Atraumatic, anicteric. NECK: Supple. HEART: S1, S2 heard. LUNGS: Bilateral air entry present. ABDOMEN: Soft. There is no tenderness. EXTREMITIES: Bilateral edema present. LABORATORY DATA: Hemoglobin 10.1, hematocrit 35.9, WBC is 12.7, platelets 441, BUN 80, creatinine 2. 3. Troponin is elevated at 0.22. IMPRESSION: The patient is an 81-year-old patient admitted with shortness of breath and nausea and v omiting. The patient has been treated for congestive heart failure also, mildly elevated troponin le leta, history of atrial fibrillation, aortic stenosis, myelodysplasia. The patient has a large hiatus hernia about 8 cm size. Has Adan ulcers and also probably antral ulcerations. The patient has been on PPI now. RECOMMENDATIONS: 1. Followup of the hemoglobin and hematocrit. 2. Continue the PPI. 3. Would consider repeating the CT to follow up the previous CT findings. 4. 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 RECOMMENDATIONS: benefit from a nonselective beta blockers. Thank you very much for allowing us to participate in the care of the patient. Jacek Metzger MD cc: [phone] TT: 04/15/2017 16:55:46 Confirmation # [id number] Dictation # [id number] alden
--- NOTE | 2017-04-15 20:34 | CP.PCM.PN ---
Subjective - Date & Time of Evaluation Date of Evaluation: 04/15/17 Time of Evaluation: 16:00 - Subjective Subjective: Patient has not acute complaints today. 12 ROS negative Objective - Vital Signs/Intake and Output Vital Signs (last 24 hours): Temp Pulse Resp BP Pulse Ox 97.4 F L 92 H 18 90/45 L 92 L 04/15/17 18:00 04/15/17 18:00 04/15/17 18:00 04/15/17 18:00 04/15/17 06:00 - Medications Medications: Current Medications Allopurinol (Zyloprim) 100 mg PO BID [facility] Last Admin: 04/15/17 17:54 Dose: 100 mg Aspirin (Aspirin) 325 mg PO DAILY [facility] Last Admin: 04/15/17 09:12 Dose: 325 mg Calcium Acetate (Phoslo) 667 mg PO WM [facility] Last Admin: 04/15/17 17:54 Dose: 667 mg Carvedilol (Coreg) 3.125 mg PO BID [facility] Last Admin: 04/15/17 17:53 Dose: Not Given Furosemide (Lasix) 40 mg IVP Q12 [facility] Last Admin: 04/14/17 11:29 Dose: 40 mg Losartan Potassium (Cozaar) 100 mg PO DAILY [facility] Last Admin: 04/14/17 11:30 Dose: 100 mg Metolazone (Zaroxolyn) 5 mg PO DAILY [facility] Last Admin: 04/14/17 11:30 Dose: 5 mg Pantoprazole Sodium (Protonix Ec Tab) 20 mg PO ACB [facility] Last Admin: 04/15/17 08:04 Dose: 20 mg - Labs Labs: 04/15/17 07:26 04/15/17 07:26 PT 13.2 Seconds (9.9-11.8) H 04/13/17 20:10 INR 1.22 (0.93-1.08) H 04/13/17 20:10 APTT 30.1 Seconds (23.7-30.8) 04/13/17 20:10 - Constitutional Appears: Non-toxic - Cardiovascular Exam Cardiovascular Exam: REGULAR RHYTHM, JVD, +S4 - GI/Abdominal Exam GI & Abdominal Exam: Distended, Soft - Extremities Exam Extremities Exam: Pedal Edema Assessment and Plan - Assessment and Plan (Free Text) Assessment: Ms Earl umu an 81 y/o woman with pmhx significant for MDS, CHF, pulmoary HTN admitted with symptoms of n/v and right sided CHF. Patient's blood pressures noted to be slightly hypotensive yesterday. Consnequenntly diuretics and BP's being held thus far. Troponins slightly uptrending but given creatinine fluctuation not surprising. AFter discussion with GI will plan on obtaining a CT a/p with PO contrast tomorrow for f/u evaluation of large hiatal hernia and likely antral ulcerations. Patient's hgb stable thus far #MDS -stable not an active issue at present #CHF/Hypotension/pulmonary HTN -holding off diuresis for now per cards given soft BPs -patient still about 8 pounds up from dry weight and will require judicious diuresis in future -continue to trend trops -obtain TTE per cards recs #Hiatal hernia with presumed antral ulceration -plan on CT PO contrast of a/p tomorrow #FEN -clear liquids for now; advance to puree if tolerated; NPO after midnight for possible CT tomorrow Alonso Waite MD Hematology Service
[2017-04-16 06:44] LABS: HEMATOCRIT 35.2 % (36.0-48.0); MEAN CELL VOLUME 99.7 fL (80.0-105.0); MEAN CORPUSCULAR HEMOGLOBIN 28.9 pg (25.0-35.0); MEAN PLATELET VOLUME 12.2 fl (7.0-11.0); PLATELET COUNT 499 10^3/uL (120.0-450.0); WHITE BLOOD COUNT 15.9 10^3/ul (4.5-11.0)
[2017-04-16] MEDS ORDERED: Barium Sulfate Susp 2.1% w/v, 2.0% w/w 450 mL Bottle PO ONE (06:44)
[2017-04-16 06:47] LABS: ALB/GLOB RATIO 1.2 (1.1-1.8); BILIRUBIN,TOTAL 0.8 mg/dL (0.2-1.3); CALCIUM 8.8 mg/dL (8.4-10.5); MAGNESIUM 2.1 mg/dL (1.7-2.2); PHOSPHOROUS 5.6 mg/dL (2.5-4.5); POTASSIUM 5.1 mmol/L (3.6-5.0); TOTAL PROTEIN 6.1 g/dL (5.8-8.3)
[2017-04-16 06:51] LABS: ADD MANUAL DIFF? YES
[2017-04-16 08:13] LABS: BAND 3 % (0-2); EOSINOPHIL 2 % (0.0-3.0); HYPOCHROMIA SLIGHT; NEUTROPHIL 75 % (50.0-70.0); PLATELET ESTIMATE HIGH (NORMAL)
[2017-04-16 08:14] LABS: LARGE PLATELETS PRESENT
--- NOTE | 2017-04-16 08:30 | CP.PCM.PN ---
Subjective - Date & Time of Evaluation Date of Evaluation: 04/16/17 Time of Evaluation: 07:00 - Subjective Subjective: Stable on 2R. BP's 90 - 120 systolic now. No CP or SOB V/S noted. AF Lungs: clear Cor.: S1S2 Abd.: soft Ext.: + edema Neuro.: alert I/O= 600/450 Labs noted: Cr. = 2.7,, K+= 5.1, WBC = 15,900, Pl ct.= 499,000. 04/15 trop. = 0.22 BC x1 NG at 24 hrs. Objective - Vital Signs/Intake and Output Vital Signs (last 24 hours): Temp Pulse Resp BP Pulse Ox 98.2 F 90 17 118/62 94 L 04/16/17 05:24 04/16/17 05:24 04/16/17 05:24 04/16/17 05:24 04/16/17 05:24 Intake and Output: 04/16/17 04/16/17 06:59 18:59 Intake Total 600 Output Total 450 Balance 150 - Medications Medications: Current Medications Allopurinol (Zyloprim) 100 mg PO BID [facility] Last Admin: 04/15/17 17:54 Dose: 100 mg Aspirin (Aspirin) 325 mg PO DAILY [facility] Last Admin: 04/15/17 09:12 Dose: 325 mg Calcium Acetate (Phoslo) 667 mg PO WM [facility] Last Admin: 04/15/17 17:54 Dose: 667 mg Carvedilol (Coreg) 3.125 mg PO BID [facility] Last Admin: 04/15/17 17:53 Dose: Not Given Furosemide (Lasix) 40 mg IVP Q12 [facility] Last Admin: 04/14/17 11:29 Dose: 40 mg Losartan Potassium (Cozaar) 100 mg PO DAILY [facility] Last Admin: 04/14/17 11:30 Dose: 100 mg Metolazone (Zaroxolyn) 5 mg PO DAILY [facility] Last Admin: 04/14/17 11:30 Dose: 5 mg Pantoprazole Sodium (Protonix Ec Tab) 20 mg PO ACB [facility] Last Admin: 04/15/17 08:04 Dose: 20 mg - Labs Labs: 04/16/17 05:30 04/16/17 05:30 PT 13.2 Seconds (9.9-11.8) H 04/13/17 20:10 INR 1.22 (0.93-1.08) H 04/13/17 20:10 APTT 30.1 Seconds (23.7-30.8) 04/13/17 20:10 Assessment and Plan - Assessment and Plan (Free Text) Plan: Assessment: SOB/Nausea/Vomiting Hypotension AF Acute on CKD HBP Anemia Myeloproliferative disorder Gout DJD UTI's Cataracts Obesity Cirrhosis/Varices/Portal Gastropathy Echo: , Mild MR, Mod. TR, Mod PH Plan: Hold diuretics and losartan for hypotension/LUIS. CT A+P today Check echo. As per Heme, GI and Renal Monitor: labs, I/Os, renal fx., stool for OB, sats., etc.
[2017-04-16] MEDS: Pantoprazole 20 mg EC Tab PO SCH (08:44)
--- NOTE | 2017-04-16 12:06 | PN ---
DATE: 04/16/2017 SUBJECTIVE: The patient is seen lying in bed. She is awake. She is alert. She reports no more vom iting. She also moved her bowels today. She denies any pain. She denies any shortness of breath at present. She just came up from a CT scan of her abdomen. PHYSICAL EXAMINATION: GENERAL: Obese elderly lady lying in bed. VITAL SIGNS: Blood pressure 98/52, heart rate 94, respiratory rate 17, temperature 98.2. HEENT: Normocephalic, atraumatic. NECK: Supple, no JVD. LUNGS: Bilateral equal air entry, bilateral rhonchi, basal rales. CARDIAC: S1, S2, regular rate and rhythm, no murmur, no rub. ABDOMEN: Obese, distended, soft, nontender, bowel sounds present. EXTREMITIES: Trace lower extremity edema. INTAKE AND OUTPUT: 600/450. LABORATORY DATA: WBC 15.9, hemoglobin 10, hematocrit 35, platelets 499; 75% polys, 3% bands. Sodium 139, potassium 5.1, chloride 105, CO2 of 22, BUN 85, creatinine 2.7, glucose 89, calcium 8.8, phosph orus 5.6, magnesium 2.1. Troponin 0.22. Albumin 3.3. Vitamin D 15.5. CURRENT MEDICATIONS: Aspirin, Coreg 3.125 (not given today), Cozaar on hold, Lasix on hold, PhosLo 3 times a day with meals, Protonix, Zaroxolyn on hold, allopurinol 100 b.i.d. ASSESSMENT: 1. Acute kidney injury superimposed on chronic kidney disease, stage III/IV. 2. Worsening renal function at present. 3. Mild hyperkalemia. 4. History of congestive heart failure/atrial fibrillation. 5. Secondary hyperparathyroidism. 6. Hyperphosphatemia. 7. Hypertension, but currently patient is hypotensive. 8. History of anemia, myelodysplastic syndrome. PLAN: 1. Continue to hold ARB. 2. Continue to hold Lasix and Zaroxolyn. 3. Followup CT scan of the abdomen. 4. In light of rising WBC count, check urinalysis and urine microalbumin and urine culture. 5. Avoid nephrotoxins. 6. Monitor daily labs. 7. Push p.o. fluids. Bettie Elkins MD cc: [phone] TT: 04/16/2017 12:05:48 Confirmation # [id number] Dictation # [id number] mn
--- NOTE | 2017-04-16 12:50 | CT ---
PROCEDURE: CT Abdomen and Pelvis without intravenous contrast HISTORY: bleeding ulcers COMPARISON: 10/30/2016. TECHNIQUE: Technique. Contrast Dose: Radiation dose: Total exam DLP = 1233 mGy-cm. This CT exam was performed using one or more of the following dose reduction techniques: Automated exposure control, adjustment of the mA and/or kV according to patient size, and/or use of iterative reconstruction technique. FINDINGS: LOWER THORAX: Moderate bilateral pleural effusions with compressive atelectasis at the lung bases. LIVER: Hepatomegaly. GALLBLADDER AND BILE DUCTS: Gallstones. PANCREAS: Unremarkable. No gross lesion or ductal dilatation. SPLEEN: Splenomegaly. ADRENALS: Unremarkable. No mass. KIDNEYS AND URETERS: Unremarkable. No hydronephrosis. No solid mass. VASCULATURE: Unremarkable. No aortic aneurysm. BOWEL: Unremarkable. No obstruction. No gross mural thickening. APPENDIX: Unremarkable. Normal appendix. PERITONEUM: Pelvic ascites. Diffuse anasarca with infiltration of the subcutaneous fat. LYMPH NODES: Unremarkable. No enlarged lymph nodes. BLADDER: Unremarkable. REPRODUCTIVE: Fibroid uterus.. BONES: No acute fracture. OTHER FINDINGS: None. IMPRESSION: Bilateral pleural effusions with compressive atelectasis at the lung bases with ascites and diffuse anasarca. Hepatosplenomegaly. Cholelithiasis. No significant interval change.
--- NOTE | 2017-04-16 16:22 | PN ---
DATE: 04/16/2017 Seen and examined at the bedside this morning. She was drinking the oral contrast for CT scan of abdomen and pelvis. Denies any nausea, vomiting, or abdominal pain. No acute overnight events reported. VITAL SIGNS: Temperature is . LABORATORIES: 15.9, H and H is 10.2 and 35.2, platelet is 499. Sodium is 139, K 5.1, BUN is 85, creatinine is 2.7. Total bilirubin is 0.8, AST 54, ALT 25, alkaline phosphatase 88. Yesterday, her LDH was 40-84 and the total creatine kinase 37 and troponin was 0.22. Urine culture: Multiple species, suggest repeat specimen. Blood culture x 1 negative so far preliminary. PHYSICAL EXAMINATION: HEENT: Sclera is anicteric. NECK: Supple. CARDIAC: S1, S2. LUNG SOUNDS: Clear. ABDOMEN: With bowel sounds, soft, nontender, no rebound or guarding. EXTREMITIES: Positive pulses with positive bilateral edema. NEUROLOGIC: Awake and alert. ASSESSMENT: The patient came with shortness of breath, nausea, vomiting, hypotension, acute on chronic disease. The patient has anemia, myeloproliferative disorder, here for congestive heart failure and mildly elevated troponin, history of atrial fibrillation and aortic stenosis. The patient has a large hiatal hernia, size of 8 cm and history of Adan ulcers. No current episodes of nausea or vomiting. We will follow up her CT scan of abdomen and pelvis and continue proton pump inhibitor. 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 She also had grade I varices and portal gastropathy. The patient may benefit from beta aparna. The patient's blood pressure is on low side. Her diuretics and losartan are on hold as per cardiology. Continue diet as tolerated. Continue low dose PPI. The patient was seen and case discussed with Dr. Metzger. Sima CONNOR cc: [id number] TT: 04/16/2017 14:48:38 Confirmation # [id number] Dictation # [id number] en MTDD
--- NOTE | 2017-04-16 18:31 | PN ---
DATE: 04/16/2017 ADDENDUM: This is an addendum to the GI progress report dictated by Sima Guevara APN. The patient is tolerating the diet. The patient was drinking the CAT scan dye at the time of examina tion. PHYSICAL EXAMINATION: ABDOMEN: Soft. No tenderness. LABORATORY DATA: Hemoglobin 10.2. The CT scan was subsequently reviewed and showed bilateral pleura l effusion with basal atelectasis, gallstones, hepatosplenomegaly. No significant interval quinten nges noticed. PLAN: The plan is to consider upper GI endoscopy when optimized to evaluate the healing of the ulcer . We will discuss with the wax blender and also with Dr. Waite. Thank you very much for allowing us to participate in the care of the patient. Jacek Metzger MD cc: [phone] TT: 04/16/2017 18:30:10 Confirmation # [id number] Dictation # [id number] mn
--- NOTE | 2017-04-17 00:31 | PN ---
DATE: 04/16/2017 LOCATION: The patient is in room 265, bed 1. SUBJECTIVE: The patient is seen in bed. She just came back from the CAT scan, the results of which are still pending. She is awake. She is alert and oriented, but reports no further heaves or vomiti ng. She had moved her bowels today, though the frequency of bowels appears to be less, no diarrhea. Denies any pain. Denies any shortness of breath. PHYSICAL EXAMINATION: GENERAL: The patient is awake, alert, and oriented. VITAL SIGNS: Stable. The patient is on the hypotensive side. Blood pressure is 98/52, heart rate i s 94, respirations 17, T-max is 98.4. HEENT: Head is normocephalic, atraumatic. Conjunctivae pale. Sclerae are anicteric. Pupils are eq ually reactive to light and accommodation. Examination of the oropharynx reveals no oropharyngeal le sions. Tongue is moist. NECK: Supple. There is no adenopathy. No jugular venous distention is noted. LUNGS: Reveal bilateral rhonchi and basilar rales. HEART: Reveals S1 and S2 to be normal. The patient has evidence of both mitral regurgitation and tr icuspid regurgitation. ABDOMEN: Soft, nontender, distended, protuberant. The patient has evidence of subcutaneous pitting edema of the abdominal wall extending to the back, involving the lower back as well. EXTREMITIES: Reveal trace lower extremity edema that was extending up to the thighs, which appears t o be a little bit better. LABORATORY DATA: Reveals a white count to be 15.9, hemoglobin 10, hematocrit 35, platelet count is 4 99,000. Sodium is 139, potassium is 5.1, chloride is 105, CO2 is 22, BUN is 85, creatinine is 2.7, g lucose 89, calcium 8.8, phosphorus is 5.6. Magnesium is 2.5, albumin is 3.3. Vitamin D 15.1. MEDICATIONS: Aspirin, Coreg, Cozaar, which on hold, Lasix on hold, 3 times a day with meals, P rotonix, Zaroxolyn on hold and allopurinol 100 b.i.d. ASSESSMENT NOTES AND PLAN: The patient has worsening kidney dysfunction superimposed on chronic kidn ey disease, mild hyperkalemia, congestive heart failure with atrial fibrillation, secondary hyperpara thyroidism, hyperphosphatemia, hypertension, currently meds on hold because she was hypotensive. Ane troy and myeloproliferative disorder, hepatosplenomegaly. The patient's medications are on hold as pe r renal. Will check with followup CAT scan. The patient may need some IV albumin along with Lasix t o get rid of the ascites and anasarca that we see on physical exam. Hopefully, that will help the pa tient to lose weight, as well water weight and she may feel better. The patient is being scheduled f or GI evaluation for possible endoscopy. Will check with Yassine on the same. Routine post exam in structions have been given to the patient. We will continue to monitor her clinically as far as anem ia and myeloproliferative disorder is concerned. Sharmila Waite MD cc: [phone] TT: 04/17/2017 00:07:37 Confirmation # [id number] Dictation # [id number] radha
[2017-04-17 06:07] LABS: HEMATOCRIT 34.6 % (36.0-48.0); MEAN CELL VOLUME 98.3 fL (80.0-105.0); MEAN CORPUSCULAR HGB CONC 29.5 g/dl (31.0-37.0); MEAN PLATELET VOLUME 11.9 fl (7.0-11.0); RED CELL DISTRIBUTION WIDTH 20.8 % (11.5-14.5); WHITE BLOOD COUNT 15.2 10^3/ul (4.5-11.0)
[2017-04-17 07:03] LABS: ALB/GLOB RATIO 1.3 (1.1-1.8); BILIRUBIN,TOTAL 0.6 mg/dL (0.2-1.3); CALCIUM 8.8 mg/dL (8.4-10.5); PHOSPHOROUS 5.1 mg/dL (2.5-4.5); POTASSIUM 5.1 mmol/L (3.6-5.0); TOTAL PROTEIN 6.1 g/dL (5.8-8.3)
[2017-04-17] MEDS: Pantoprazole 20 mg EC Tab PO SCH (07:53)
--- NOTE | 2017-04-17 08:22 | CP.PCM.PN ---
Subjective - Date & Time of Evaluation Date of Evaluation: 04/17/17 Time of Evaluation: 07:00 - Subjective Subjective: Stable on 2R. BP's 90 - 120 systolic now. No CP or SOB V/S noted. AF Lungs: clear Cor.: S1S2 Abd.: soft Ext.: + edema Neuro.: alert Labs noted: Cr. = 2.9,, K+= 5.1 BC x1 NG at [address] A/P noted: Anasarca, H-S omegaly, etc. Objective - Vital Signs/Intake and Output Vital Signs (last 24 hours): Temp Pulse Resp BP Pulse Ox 97.9 F 94 H 20 110/52 L 94 L 04/17/17 06:00 04/17/17 06:00 04/17/17 06:00 04/17/17 06:00 04/16/17 05:24 Intake and Output: 04/17/17 04/17/17 06:59 18:59 Intake Total 240 Balance 240 - Medications Medications: Current Medications Allopurinol (Zyloprim) 100 mg PO BID [facility] Last Admin: 04/16/17 17:30 Dose: 100 mg Aspirin (Aspirin) 325 mg PO DAILY [facility] Last Admin: 04/16/17 10:06 Dose: 325 mg Calcium Acetate (Phoslo) 667 mg PO WM [facility] Last Admin: 04/17/17 07:56 Dose: 667 mg Carvedilol (Coreg) 3.125 mg PO BID [facility] Last Admin: 04/16/17 17:22 Dose: Not Given Furosemide (Lasix) 40 mg IVP Q12 [facility] Last Admin: 04/14/17 11:29 Dose: 40 mg Losartan Potassium (Cozaar) 100 mg PO DAILY [facility] Last Admin: 04/14/17 11:30 Dose: 100 mg Metolazone (Zaroxolyn) 5 mg PO DAILY [facility] Last Admin: 04/14/17 11:30 Dose: 5 mg Pantoprazole Sodium (Protonix Ec Tab) 20 mg PO ACB [facility] Last Admin: 04/17/17 07:53 Dose: 20 mg - Labs Labs: 04/17/17 05:15 04/17/17 05:15 PT 13.2 Seconds (9.9-11.8) H 04/13/17 20:10 INR 1.22 (0.93-1.08) H 04/13/17 20:10 APTT 30.1 Seconds (23.7-30.8) 04/13/17 20:10 Assessment and Plan - Assessment and Plan (Free Text) Plan: Assessment: SOB/Nausea/Vomiting Edema/Ascites/pleural effusions Hypotension AF Acute on CKD HBP Anemia Myeloproliferative disorder Gout DJD UTI's Cataracts Obesity Cirrhosis/Varices/Portal Gastropathy Echo 10/20: , Mild MR, Mod. TR, Mod PH and NL LV Plan: Hold diuretics and losartan for hypotension/LUIS. Echo. As per Heme, GI and Renal Monitor: labs, I/Os, renal fx., stool for OB, sats., etc.
[2017-04-17] MEDS ORDERED: Ergocalciferol 50,000 Intl Units Cap PO SCH (13:30)
--- NOTE | 2017-04-17 14:03 | PN ---
DATE: 04/17/2017 SUBJECTIVE: The patient is currently seen on telemetry. She is lying comfortable in bed. She is no longer hypotensive. She is also not receiving diuretic therapy at this time. The patient's weight is now 266 pounds up from yesterday at 258 pounds. MEDICATIONS: Medication list reviewed. The patient is currently on aspirin, Coreg, losartan is on h old, Lasix is on hold, PhosLo, Protonix, Zaroxolyn is on hold, and allopurinol. OBJECTIVE: INTAKE AND OUTPUT: Intake is 240 mL, output is not charted. VITAL SIGNS: Blood pressure 106/55, pulse 96, respiratory rate of 18 with a temperature of 97.2. HEENT: Normocephalic, atraumatic. Conjunctivae are pale. Sclerae are nonicteric. NECK: Supple, no neck vein distention. CHEST: Clear to auscultation and percussion with decreased breath sounds at the bases. No rales, no rhonchi, no wheezing. CARDIOVASCULAR: Shows an irregular S1, S2. Aortic stenosis, mitral regurgitation, tricuspid regurgi tation. No rub. ABDOMEN: Soft. Moderate obesity. No distention. Bowel sounds are normal. No rebound, no guarding . EXTREMITIES: Show puffy upper extremities. She has 1+ edema of her lower extremity bilaterally, whi ch is pitting. LABORATORY DATA AND IMAGING: CBC today, white blood cell count 15.2, hemoglobin 10.2 which is stable , platelet count is 492,000. Chemistries today show a sodium of 138, potassium of 5.1, chloride of 1 04 with a CO2 of 23, BUN is 86 with a creatinine of 2.9, slightly higher than yesterday's values. Ca lcium is 8.8 with a phosphorus of 5.1 and a magnesium level of 2.0. Microbiology: Blood cultures ar e negative at 48 hours. Urine C and S shows a contaminated specimen. ASSESSMENT: 1. Prerenal azotemia superimposed on chronic kidney disease stage III/IV. The patient in the past h as been maintained on diuretic therapy for prevention of CHF and lower extremity edema. In the past, she has had BUN in the 80-100 range with creatinines in the low to mid 2 range. The patient this ti me around had diuretic therapy disrupted because of her hypotension over the latter part of this past weekend. She is currently off Lasix and currently off Zaroxolyn. 2. Chronic kidney disease stage III/IV as a baseline with a creatinine in the low to mid 2 range. 3. History of atrial fibrillation, rate controlled. The patient is not receiving any anticoagulatio n. 4. History of anemia, iron deficiency anemia, myelodysplastic syndrome. This is being managed by Dr Yudi Waite and Dr. Montano. If hemoglobin drops significantly below 10.0, the patient might be a candidate for Aranesp therapy. 5. Vitamin D deficiency with a normal parathyroid hormone level and elevated phosphorus level. The patient has secondary hyperparathyroidism. I will start patient on binder therapy. She will continu e a renal diet. I will also start her on vitamin D therapy. 6. History of hypertension. The patient is currently borderline hypotensive. Blood pressure medica tion is on hold with the exception of low dose Coreg. PLAN: 1. Continue to monitor patient on telemetry. 2. Continue renal diet, start binder therapy and begin vitamin D therapy. 3. Need to monitor accurate I's and O's as she appears to have a significant weight gain in the last 24 hours. 4. Cardiology followup appreciated. 5. Abdominal and pelvic CT scan reviewed. Kidneys were unremarkable, no hydronephrosis, no masses. She does have bilateral pleural effusions with compressive atelectasis of the lung and diffuse anasa rca, hepatosplenomegaly, cholelithiasis, which is unchanged from past studies. Miles Mcgowan MD cc: [phone] TT: 04/17/2017 14:02:34 Confirmation # [id number] Dictation # [id number] cn
--- NOTE | 2017-04-17 16:51 | CP.PCM.PN ---
Subjective - Date & Time of Evaluation Date of Evaluation: 04/17/17 Time of Evaluation: 16:59 - Subjective Subjective: 81 y/o F with multiple medical problems presenting for EGD/Colonoscopy. Upon arrival, patient noted to be moderately tachypnic and rales were heard at the lung bases. Based on the patient's history of CHF and significant weight gain during the last 24 hours decision was made to delay case due to increased anesthetic risk. Dr. Metzger agreed. Objective - Vital Signs/Intake and Output Vital Signs (last 24 hours): Temp Pulse Resp BP Pulse Ox 98.2 F 87 17 105/63 96 04/17/17 15:45 04/17/17 15:45 04/17/17 15:45 04/17/17 15:45 04/17/17 15:45 Intake and Output: 04/17/17 04/17/17 06:59 18:59 Intake Total 240 120 Output Total 300 Balance 240 -180 - Medications Medications: Current Medications Allopurinol (Zyloprim) 100 mg PO BID [facility] Last Admin: 04/17/17 09:28 Dose: 100 mg Aspirin (Aspirin) 325 mg PO DAILY [facility] Last Admin: 04/17/17 09:28 Dose: 325 mg Calcium Acetate (Phoslo) 667 mg PO WM [facility] Last Admin: 04/17/17 11:55 Dose: 667 mg Carvedilol (Coreg) 3.125 mg PO BID [facility] Last Admin: 04/17/17 09:32 Dose: Not Given Ergocalciferol (Drisdol 50,000 Intl Units Cap) 1 cap PO Q7D [facility] Last Admin: 04/17/17 14:27 Dose: 1 cap Furosemide (Lasix) 40 mg IVP Q12 [facility] Last Admin: 04/14/17 11:29 Dose: 40 mg Losartan Potassium (Cozaar) 100 mg PO DAILY [facility] Last Admin: 04/14/17 11:30 Dose: 100 mg Metolazone (Zaroxolyn) 5 mg PO DAILY [facility] Last Admin: 04/14/17 11:30 Dose: 5 mg Pantoprazole Sodium (Protonix Ec Tab) 20 mg PO ACB [facility] Last Admin: 04/17/17 07:53 Dose: 20 mg - Labs Labs: 04/17/17 05:15 04/17/17 05:15 PT 13.2 Seconds (9.9-11.8) H 04/13/17 20:10 INR 1.22 (0.93-1.08) H 04/13/17 20:10 APTT 30.1 Seconds (23.7-30.8) 04/13/17 20:10
--- NOTE | 2017-04-17 19:14 | PN ---
DATE: 04/17/2017 SUBJECTIVE: This patient was seen and evaluated earlier today, in the endoscopy unit. The patient w as scheduled for an upper GI endoscopy today. PHYSICAL EXAMINATION: VITAL SIGNS: Temperature is 98.2, blood pressure 105/63, O2 saturation 96. HEENT: Atraumatic, anicteric. NECK: Supple. HEART: S1, S2 heard. LUNGS: Bilateral air entry present. There were bilateral rales present in the bases. IMPRESSION: This is an 81-year-old patient with a decompensated congestive heart failure, chronic ki dney disease, myelodysplastic syndrome, history of gastric ulcer, admitted with nausea, vomiting, and poor p.o. intake. The patient also had shortness of breath. Found to be in congestive heart failur e. The patient was hypotensive yesterday. The diuretics have been on hold. Today, patient today ca me to the endoscopy for evaluation. The patient was evaluated by the anesthesiologist, found to be h igh risk for sedation at the present time unless the congestive heart failure is optimized. We will discuss with Dr. Howe again, the roof bolter again. I have discussed with Dr. Waite. 1. Meanwhile, we will continue the proton pump inhibitor at a lower dose of 20 mg of Protonix daily. 2. Advance the diet. 3. We will reschedule the patient for endoscopy once her cardiopulmonary status is optimized. Thank you very much for allowing us to participate in the care of the patient. Jacek Metzger MD cc: [phone] TT: 04/17/2017 19:14:03 Confirmation # [id number] Dictation # [id number] alden
[2017-04-17] MEDS ORDERED: Albumin Human 25% (12.5 gm/50 ml) IV SCH (21:00)
[2017-04-18 07:06] LABS: HEMATOCRIT 35.6 % (36.0-48.0); MEAN CORPUSCULAR HEMOGLOBIN 27.8 pg (25.0-35.0); MEAN CORPUSCULAR HGB CONC 28.9 g/dl (31.0-37.0); MEAN PLATELET VOLUME 11.9 fl (7.0-11.0); RED CELL DISTRIBUTION WIDTH 21.5 % (11.5-14.5); WHITE BLOOD COUNT 17.1 10^3/ul (4.5-11.0)
[2017-04-18 07:13] LABS: ALB/GLOB RATIO 1.3 (1.1-1.8); BILIRUBIN,TOTAL 0.8 mg/dL (0.2-1.3); CALCIUM 8.9 mg/dL (8.4-10.5); MAGNESIUM 2.1 mg/dL (1.7-2.2); PHOSPHOROUS 4.8 mg/dL (2.5-4.5); POTASSIUM 5.3 mmol/L (3.6-5.0); TOTAL PROTEIN 6.4 g/dL (5.8-8.3)
--- NOTE | 2017-04-18 08:10 | PN ---
DATE: 04/17/2017 The patient is in room 265, bed 1. SUBJECTIVE: The patient is seen on telemetry unit. She is being assessed to go for a planned endosc opy. She is lying comfortably in bed. She is no longer ____. She has not required any diuretic the rapy at this time because of the hypotension. The patient's weight has unfortunately increased by 2 pounds. MEDICATIONS: Reviewed. She is still on aspirin, Coreg, losartan and Lasix on hold, PhosLo, Protonix , Zaroxolyn is on hold, and allopurinol. PHYSICAL EXAMINATION VITAL SIGNS: Stable. Blood pressure is 106/55, pulse is 96, respirations 18, T-max is 98.4. HEENT: Head is normocephalic, atraumatic. Conjunctivae pale. Sclerae are anicteric. Examination o f the oropharynx reveals no oropharyngeal lesions. Tongue is moist. NECK: Supple. There is no jugular venous distention. LUNGS: Reveals ____ clear to percussion and auscultation. Decreased breath sounds in both bases. N o rales, rhonchi or wheezing are heard. CARDIOVASCULAR: Reveals S1 and S2 to be irregular. The patient has aortic stenosis, mitral regurg a nd tricuspid regurg without any rub. ABDOMEN: The patient's abdomen is modestly obese without distention. The patient has anasarca, zoya cially on examination of the back. The patient has pitting edema and has evidence of a CAT scan show ing anasarca on the CAT scan along with pelvic ascites. The patient has no rebound ____, no guarding . EXTREMITIES: ____ upper extremity. She has 1+ edema of the lower extremity and there is edema exten ding in the lower back, which is pitting in nature. LABORATORY DATA: ____ reveals a white count of 15.2, ____ 10.2, hematocrit ____, platelet count of _ ___. Chemistry shows sodium of 138, K is ____, chloride 104, CO2 of 23, BUN is 86 with a creatinine of 2.9. Calcium is 8.8 with a phosphorus of 5.1, magnesium is 2. Blood cultures are negative at 48 hours. Urine C and S showed contaminated specimen. ASSESSMENT NOTES AND PLAN: The patient has decompensated congestive heart failure with hypotension p reventing further diuretic therapy. The patient has prerenal azotemia superimposed on chronic kidney disease ____ 3 or 4, requiring maintenance with diuretic therapy for the prevention of congestive he art failure and lower extremity edema. Chronic kidney disease stage III or IV ____ baseline. The cr eatinine low to mid 2 range. History of atrial fibrillation, rate controlled. The patient is not on any anticoagulation because of an underlying myeloproliferative disorder and the concern that she co uld become anemic. History of ____ ulcer and gastritis. ____ endoscopy also preventing us from anti coagulating. If her hemoglobin drops below less than 10, we may have to resume her on Aranesp. She was getting Procrit as an outpatient at home. Vitamin D deficiency with a normal ____ and normal garland vated phosphorus levels. The patient has been on ____ binder therapy. The patient has history of hy pertension for which she was on medications in the past, but they have been on hold. Plan is to cont inue to monitor the patient on telemetry. ____ the congestive heart failure with diuresis. We are g iving albumin along with the diuretics to see the ____ pressure and thereby drive the fluid down. Po st-Lasix cardiology followup. We will check with Dr. Ellis and Dr. Howe if the patient is a can didate for infusion therapy with medications ____ inotropic action on the heart and thereby improve t he congestive heart failure. CAT scans done recently shows bilateral effusion with compressive atele ctasis of the lung, diffuse anasarca, hepatosplenomegaly, cholelithiasis, which is similar to the geetha or studies. We will discuss with all the members of the team involved to try to maximize the benefit s for her at this time. Did speak to Dr. Metzger who felt that the anesthesia ____ she was such a g reat risk for anesthesia that was needed for the endoscopy that they had to cancel it. They felt dania t the patient could aspirate or may not recover from the conscious sedation. We will treat the patie nt symptomatically now for her gastroesophageal reflux disease and ulcer and see how things proceed o maninder the next several days. We will also talk to the blacksmith hammer operator about starting ____ inotropic actio n as far as the heart is concerned but in the meantime continuing gingerly diuretic therapy along wit h medications that can ____ the oncotic pressure. Sharmila Waite MD cc: [id number] TT: 04/17/2017 23:29:22 Confirmation # [id number] Dictation # [id number] sn
[2017-04-18] MEDS: Pantoprazole 20 mg EC Tab PO SCH (08:27)
[2017-04-18] MEDS: Albumin Human 25% (25 gm/100 ml) IV SCH (10:40)
--- NOTE | 2017-04-18 11:02 | CARD ---
APPROVED REPORT EXAM: Two-dimensional and M-mode echocardiogram with Doppler and color Doppler. INDICATION ANASARCA/ 2D DIMENSIONS RVDd4.9 (2.9-3.5cm)Left Atrium (2D)5.7 (1.6-4.0cm) IVSd1.2 (0.7-1.1cm)LVDd3.7 (3.9-5.9cm) LVOT Diameter1.9 (1.8-2.4cm)PWd1.2 (0.7-1.1cm) LVDs2.2 (2.5-4.0cm)FS (%) 41.5 % LVEF (%)73.2 (>50%) M-Mode DIMENSIONS Aortic Cusp Exc.0.60 (1.5-2.0cm) Aortic Valve AoV Peak Xirqkwqb156.0cm/sAoV VTI80.2cmAO Peak GR.72mmHg LVOT Peak Quzsuqau28.7cm/sLVOT VTI21.30cmAO Mean GR.38mmHg CHERISE (VMAX)0.08gs0SIF (VTI)0.75cm2 Mitral Valve MV MTE326drP/A ratio0.0MVA (PHT)2.10cm2 TDI E/Lateral E'0.0E/Medial E'0.0 Pulmonary Valve PV Peak Aecgxwhb77.5cm/sPV Peak Grad.1mmHg Tricuspid Valve TR Peak Jtydkvva624zd/sRAP NYKFNTBY66gbWhFR Peak Gr.87mmHg TRGL65ncJp LEFT VENTRICLE The left ventricle is normal size. There is mild concentric left ventricular hypertrophy. The left ventricular function is normal. The left ventricular ejection fraction is within the normal range. There is a flattened septum consistent with right ventricle pressure overload. RIGHT VENTRICLE The right ventricle is moderately dilated. The right ventricular systolic function is normal. ATRIA The left atrium is severely dilated. The right atrium is severely dilated. The interatrial septum is intact with no evidence for an atrial septal defect. AORTIC VALVE The aortic valve is severely calcified. There is mild aortic regurgitation. There is moderate to severe valvular aortic stenosis. MITRAL VALVE Mitral annular calcification is moderate. Mitral regurgitation is mild. TRICUSPID VALVE The tricuspid valve is normal in structure. There is severe tricuspid regurgitation. There is severe pulmonary hypertension. PULMONIC VALVE The pulmonary valve is normal in structure. GREAT VESSELS The aortic root is normal in size. The IVC is normal in size and collapses >50% with inspiration. PERICARDIAL EFFUSION There is no pleural effusion. There is no pericardial effusion. <Conclusion> Dilated RV. Biatrial enlargement. Normal LV size and systolic function. Mild concentric LVH. Moderate to severe . Mild MR. Severe TR. Severe pulmonary HTN.
--- NOTE | 2017-04-18 14:19 | PN ---
DATE: 04/18/2017 Seen and examined at the bedside this morning. She was out of bed to chair, tolerating the clear liquid diet. The patient denies any nausea, vomiting, shortness of breath, chest pain or any abdominal pain. No acute overnight events reported. VITAL SIGNS: Temperature is 97, her blood pressure is 131/76, pulse 78, respirations 18, 95% O2 saturation. LABORATORY DATA: Today, WBC is 17.1, H and H is 10.3 and 35.6, this remains steady. Her platelet count is 540. Sodium is 137, K 5.3, BUN 84, creatinine is 2.8. Total bilirubin is 0.8, AST 65, ALT 34, alkaline phosphatase is 87. PHYSICAL EXAMINATION: HEENT: Sclerae are anicteric. NECK: Supple. CARDIAC: S1, S2. LUNGS: Sounds with positive bilateral entry with positive rales. ABDOMEN: With bowel sounds. Softly obese. No tenderness on palpation. No rebound, guarding, or organomegaly. EXT: positive for bilateral edema ASSESSMENT: This is an 81-year-old female with a history of chronic kidney disease, myelodysplastic syndrome, history of gastric ulcer and decompensated congestive heart failure, came in with nausea, vomiting, and poor oral intake. The patient had some shortness of breath, found to have congestive heart failure. She also was hypotensive. Her endoscopy was canceled and put on hold. History of atrial fibrillation and aortic stenosis. She also has a large hiatal hernia and history of grade I varices and portal gastropathy. 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 PLAN: We will continue PPI. She is on low dose Protonix. Advance her diet. Consider endoscopy when patient's cardiopulmonary status is more optimal. The patient is being followed by cardiology. The patient is on aspirin . The patient was seen and case discussed with Dr. Metzger. Sima CONNOR cc: [phone] TT: 04/18/2017 14:18:10 Confirmation # [id number] Dictation # [id number] rona CASTILLO
--- NOTE | 2017-04-18 14:36 | RAD ---
HISTORY: follow up pl effusions COMPARISON: 04/13/2017 FINDINGS: LUNGS: Vascular congestion and bibasilar infiltrates PLEURA: Probable small effusions CARDIOVASCULAR: Severe cardiomegaly OSSEOUS STRUCTURES: No significant abnormalities. VISUALIZED UPPER ABDOMEN: Normal. OTHER FINDINGS: None. IMPRESSION: Severe cardiomegaly with vascular congestion and bibasilar infiltrates
--- NOTE | 2017-04-18 15:01 | PN ---
DATE: 04/18/2017 SUBJECTIVE: The patient is seen sitting in a chair on telemetry. She states that she feels signific antly better today. She does have persistent pain in both legs, which are very tender. She remains edematous. CURRENT MEDICATIONS: Include IV albumin, aspirin, carvedilol 3.125 mg b.i.d., Lasix 20 mg IV daily, Protonix, and Zyloprim. OBJECTIVE: GENERAL: She is an elderly woman who appears comfortable at the present time. VITAL SIGNS: Blood pressure is 110/70. The pulse is 62 in atrial fibrillation. Respirations are 16 . She is afebrile. HEENT: No JVD. CHEST: Bilateral scattered rhonchi. HEART: PMI displaced laterally with a systolic murmur at the base radiating to the carotids. Systol ic murmur was also present at the lower left sternal border and apex. ABDOMEN: Soft, obese, nontender, normoactive bowel sounds. EXTREMITIES: 3+ edema to the thighs is noted. LABORATORY DATA: Potassium 5.3. BUN and creatinine are 84 and 2.8. White count 17.1, hemoglobin an d hematocrit 10.3 and 35.6 with a platelet count of 540,000. Echocardiogram was performed, and results will be reviewed. IMPRESSION: 1. Decompensated congestive heart failure, right side greater than left with severe leg edema, likel y exacerbated by some degree of pulmonary hypertension and liver disease. 2. Moderately severe aortic stenosis. 3. Acute on chronic renal failure. 4. Myeloproliferative disorder. 5. Obesity. RECOMMENDATIONS: Low-dose diuretic therapy should continue for now. Renal function will need to be monitored carefully. Feng wraps will be applied to her lower extremities in an attempt to help with m obilization of edema. Conservative management of her valvular heart disease is most reasonable at th is time. We will be happy to follow along and make further recommendations as appropriate. Karsten Ellis MD cc: [id number] TT: 04/18/2017 15:00:28 Confirmation # [id number] Dictation # [id number] jn
--- NOTE | 2017-04-18 15:31 | PN ---
DATE: 04/18/2017 SUBJECTIVE: The patient is seen sitting in chair. She is awake. She is alert. She is comfortable. She reports no more nausea and vomiting. She moved her bowels. She denies any pain. PHYSICAL EXAMINATION: GENERAL: Obese elderly lady sitting in chair. VITAL SIGNS: Blood pressure 131/76, heart rate 78, respiratory rate 18, temperature 97. HEENT: Normocephalic, atraumatic. NECK: Supple. No JVD. LUNGS: Bilateral equal air entry. Bilateral rhonchi. CARDIAC: S1 and S2, regular rate and rhythm. No murmur, no rub. ABDOMEN: Obese, distended, soft, nontender, bowel sounds present. EXTREMITIES: Trace lower extremity edema. INTAKE AND OUTPUT: 240/450. LABORATORY DATA: WBC 17, hemoglobin 10.3, hematocrit 35.6, platelets 540. Sodium 137, potassium 5.3 , chloride 103, CO2 of 24. BUN 84, creatinine 2.8. Glucose 98. Calcium 8.9, phosphorus 4.8, magnes ium 2.1. AST 65, ALT 34. Albumin 3.7. Vitamin D 15.5. PTH 46. Blood culture - no growth. CURRENT MEDICATIONS: Albumin 25 grams daily, aspirin, Coreg, Cozaar 100, Drisdol, Lasix 40 q. 12, P hosLo, Protonix, Zaroxolyn, allopurinol. ASSESSMENT: 1. Prerenal azotemia superimposed on chronic kidney disease, stage IV. 2. Atrial fibrillation, rate controlled. 3. Anemia, myelodysplastic syndrome, thrombocytosis. 4. Low vitamin D. 5. Hypertension. 6. Dilated right ____, congestive heart failure, moderate ____, severe pulmonary hypertension. PLAN: 1. Okay to continue ARB for hypertension. 2. Continue to diurese. 3. Keep O's greater than I's. 4. Avoid nephrotoxins. 5. Monitor daily weights. 6. Monitor potassium. 7. ? Discontinue albumin. Bettie Elkins MD cc: [phone] TT: 04/18/2017 15:31:12 Confirmation # [id number] Dictation # [id number] jn
--- NOTE | 2017-04-18 18:12 | CP.PCM.PN ---
<Karsten Baldwin - Last Filed: 04/18/17 18:29> Subjective - Date & Time of Evaluation Date of Evaluation: 04/18/17 Time of Evaluation: 18:02 - Subjective Subjective: [employer]ER called at 1750. Responded to patient's room. Nursing staff report a change in mental status. The patient was found to be non-responsive. Staff and family state the patient was awake and alert earlier today. The patient was non- responsive to vigorous sternal rubbing. Vital signs were BP - 112/51 HR -80 RR - 20 Oxygen saturation - 100%, temp 98.5F, blood glucose - 119. After further sternal rubbing and examination the patient spontaneously awakened and stating "I am sleeping." She is fully oriented and moving all extremities. She is conversing and responding to questions appropriately. EKG reveals mild ST depressions in the lateral leads as well as T wave inversions in the lateral leads. This findings are new from previous. Objective - Vital Signs/Intake and Output Vital Signs (last 24 hours): Temp Pulse Resp BP Pulse Ox 97.3 F L 69 20 110/70 95 04/18/17 12:00 04/18/17 14:00 04/18/17 12:00 04/18/17 12:00 04/18/17 06:00 Intake and Output: 04/18/17 04/18/17 06:59 18:59 Intake Total 120 600 Output Total 150 500 Balance -30 100 - Medications Medications: Current Medications Albumin Human (Albumin Human 25% (25 Gm/100 Ml)) 25 gm IV DAILY [facility] Stop: 04/20/17 21:01 Last Admin: 04/18/17 10:40 Dose: 25 gm Allopurinol (Zyloprim) 100 mg PO BID [facility] Last Admin: 04/18/17 10:41 Dose: 100 mg Aspirin (Aspirin) 325 mg PO DAILY [facility] Last Admin: 04/18/17 10:41 Dose: 325 mg Calcium Acetate (Phoslo) 667 mg PO WM [facility] Last Admin: 04/18/17 13:21 Dose: Not Given Carvedilol (Coreg) 3.125 mg PO BID [facility] Last Admin: 04/18/17 10:51 Dose: 3.125 mg Ergocalciferol (Drisdol 50,000 Intl Units Cap) 1 cap PO Q7D [facility] Last Admin: 04/17/17 14:27 Dose: 1 cap Furosemide (Lasix) 40 mg IVP Q12 [facility] Last Admin: 04/14/17 11:29 Dose: 40 mg Furosemide (Lasix) 20 mg IVP DAILY [facility] Stop: 04/20/17 00:15 Losartan Potassium (Cozaar) 100 mg PO DAILY [facility] Last Admin: 04/14/17 11:30 Dose: 100 mg Metolazone (Zaroxolyn) 5 mg PO DAILY [facility] Last Admin: 04/14/17 11:30 Dose: 5 mg Pantoprazole Sodium (Protonix Ec Tab) 20 mg PO ACB [facility] Last Admin: 04/18/17 08:27 Dose: 20 mg - Labs Labs: 04/18/17 06:30 04/18/17 06:30 PT 13.2 Seconds (9.9-11.8) H 04/13/17 20:10 INR 1.22 (0.93-1.08) H 04/13/17 20:10 APTT 30.1 Seconds (23.7-30.8) 04/13/17 20:10 - Constitutional Appears: Non-toxic, No Acute Distress - Head Exam Head Exam: ATRAUMATIC, NORMOCEPHALIC - Eye Exam Eye Exam: EOMI, PERRL - ENT Exam ENT Exam: Mucous Membranes Moist - Neck Exam Neck Exam: Normal Inspection - Cardiovascular Exam Cardiovascular Exam: RRR, +S1, +S2. absent: Tachycardia, Irregular Rhythm - GI/Abdominal Exam GI & Abdominal Exam: Soft - Extremities Exam Extremities Exam: Full ROM, Pedal Edema - Neurological Exam Neurological Exam: Alert, Awake, CN II-XII Intact, Oriented x3 - Skin Skin Exam: Dry, Warm Assessment and Plan - Assessment and Plan (Free Text) Assessment: 81 y/o female with hx HTN, myeloproliferative disorder, CKD, atrial fibrillation presenting with nausea, heaving, dark stools concerning for GI bleed as well as prerenal azotemia. Patient now with acute change in mental status. Will repeat CBC, CMP, cardiac iso, EKG, chest xray and BNP. <Sharon Hughes - Last Filed: 04/18/17 19:33> Objective - Vital Signs/Intake and Output Vital Signs (last 24 hours): Temp Pulse Resp BP Pulse Ox 98.5 F 80 20 147/70 95 04/18/17 18:00 06/14/17 18:14 04/18/17 18:00 04/18/17 18:14 04/18/17 06:00 Intake and Output: 04/18/17 04/18/17 06:59 18:59 Intake Total 120 600 Output Total 150 500 Balance -30 100 - Medications Medications: Current Medications Albumin Human (Albumin Human 25% (25 Gm/100 Ml)) 25 gm IV DAILY [facility] Stop: 04/20/17 21:01 Last Admin: 04/18/17 10:40 Dose: 25 gm Allopurinol (Zyloprim) 100 mg PO BID [facility] Last Admin: 04/18/17 18:14 Dose: 100 mg Aspirin (Aspirin) 325 mg PO DAILY [facility] Last Admin: 04/18/17 10:41 Dose: 325 mg Calcium Acetate (Phoslo) 667 mg PO WM [facility] Last Admin: 04/18/17 18:14 Dose: 667 mg Carvedilol (Coreg) 3.125 mg PO BID [facility] Last Admin: 04/18/17 18:14 Dose: 3.125 mg Ergocalciferol (Drisdol 50,000 Intl Units Cap) 1 cap PO Q7D [facility] Last Admin: 04/17/17 14:27 Dose: 1 cap Furosemide (Lasix) 40 mg IVP Q12 [facility] Last Admin: 04/14/17 11:29 Dose: 40 mg Furosemide (Lasix) 20 mg IVP DAILY [facility] Stop: 04/20/17 00:15 Losartan Potassium (Cozaar) 100 mg PO DAILY [facility] Last Admin: 04/14/17 11:30 Dose: 100 mg Metolazone (Zaroxolyn) 5 mg PO DAILY [facility] Last Admin: 04/14/17 11:30 Dose: 5 mg Pantoprazole Sodium (Protonix Ec Tab) 20 mg PO ACB [facility] Last Admin: 04/18/17 08:27 Dose: 20 mg - Labs Labs: 04/18/17 18:20 04/18/17 18:20 PT 13.2 Seconds (9.9-11.8) H 04/13/17 20:10 INR 1.22 (0.93-1.08) H 04/13/17 20:10 APTT 30.1 Seconds (23.7-30.8) 04/13/17 20:10 Attending/Attestation - Attestation I have personally seen and examined this patient.: Yes I have fully participated in the care of the patient.: Yes I have reviewed all pertinent clinical information, including history, physical exam and plan: Yes Notes (Text): 04/18/17 19:00 Note:Initially,pt was not responding to verbal commands but was responding to painful stimuli by grimacing. About 5 minutes later,she was alert,awake ,talking,giving relevant answers. She had no focal deficit noted clinically. Pt's heart is iirregular,Ekg shows AFib,rate of 75/min. IMP: AMS TIA AFIB Hyperkalemia CKD PLAN:Discussed with Dr Waite. Dr Mcgowan called ,will not give anything for now for minimally elevated K level Neuro consult requested with Dr Waters.Cat scan of head (non contrast) and neuro checks ordered. 04/18/17 19:21
[2017-04-18 18:28] LABS: HEMATOCRIT 35.4 % (36.0-48.0); MEAN CELL VOLUME 99.4 fL (80.0-105.0); MEAN CORPUSCULAR HEMOGLOBIN 28.7 pg (25.0-35.0); MEAN CORPUSCULAR HGB CONC 28.8 g/dl (31.0-37.0); MEAN PLATELET VOLUME 11.7 fl (7.0-11.0); PLATELET COUNT 488 10^3/uL (120.0-450.0); RED CELL DISTRIBUTION WIDTH 20.2 % (11.5-14.5); WHITE BLOOD COUNT 16.6 10^3/ul (4.5-11.0)
[2017-04-18 18:29] LABS: ADD MANUAL DIFF? YES
[2017-04-18 18:41] LABS: ALB/GLOB RATIO 1.4 (1.1-1.8); BILIRUBIN,TOTAL 0.7 mg/dL (0.2-1.3); CALCIUM 8.9 mg/dL (8.4-10.5); TOTAL PROTEIN 6.4 g/dL (5.8-8.3)
[2017-04-18 18:43] LABS: POTASSIUM 5.5 mmol/L (3.6-5.0)
[2017-04-18 18:53] LABS: TROPONIN I 0.86 ng/mL
--- NOTE | 2017-04-18 19:46 | PN ---
DATE: 04/18/2017 ADDENDUM This is an addendum to the GI progress report dictated by iSma Guevara APN. The patient's endoscopy was canceled yesterday by the anesthesiologist pending cardiac for optimizati on. The cardiology note appreciated. The patient does have decompensated CHF with pulmonary hyperte nsion and patient also has moderate aortic stenosis, acute on chronic kidney disease with myeloprolif erative disease. The patient is presently able to tolerate the solid diet, feels better. I had a de tailed discussion with Dr. Waite. The present plan is to hold off the endoscopic evaluation. Will optimize the cardiac condition. The patient needs to be on a longer term PPI. The patient has 3 ty pes of problems. One was large hiatus hernia of 8 cm size with a Adan ulcer and also had antral u lceration. The reasonable thing now for her is to follow up her closely. Thank you very much for allowing us to participate in the care of the patient. Jacek Metzger MD cc: [phone] TT: 04/18/2017 19:46:13 Confirmation # [id number] Dictation # [id number] rona
[2017-04-18 20:01] LABS: NEUTROPHIL 55 % (50.0-70.0)
[2017-04-18 20:02] LABS: ATYPICAL LYMPHOCYTE 5 % (0.0-0.0); BAND 17 % (0-2); BASOPHIL 1 % (0.0-1.0); EOSINOPHIL 1 % (0.0-3.0); LARGE PLATELETS PRESENT; PLATELET ESTIMATE HIGH (NORMAL)
[2017-04-18 20:03] LABS: ANISOCYTOSIS 1+
--- NOTE | 2017-04-18 20:21 | CT ---
EXAM: CT Head Without Intravenous Contrast CLINICAL HISTORY: 81 years old, female; Condition or disease; Other: Transient AMS; Additional info: Pt had transient AMS TECHNIQUE: Axial computed tomography images of the head/brain without intravenous contrast. This CT exam was performed using one or more of the following dose reduction techniques: automated exposure control, adjustment of the mA and/or kV according to patient size, and/or use of iterative reconstruction technique. EXAM DATE/TIME: 04/18/2017 6:46 PM COMPARISON: There are no prior studies for comparison. FINDINGS: Artifacts: Streak artifact degrades image quality.Motion artifact degrades image quality. Brain: There is prominence of sulci gyri and ventricles. There is no midline shift. There is decreased attenuation in periventricular white matter. There are no focal masses. There are no focal hemorrhages. Vera-white differentiation is visualized. Ventricles: See above. Bones: Cranial vault is intact. Soft tissues: unremarkable Sinuses: There is no acute sinusitis. Ears and mastoids: Middle ears and mastoids are unremarkable. Orbits: Orbital contents are unremarkable. IMPRESSION: Mild atrophy and small vessel disease, no acute intracranial abnormality
--- NOTE | 2017-04-18 20:47 | CARD ---
APPROVED REPORT EKG Measurement Heart [id number] <Conclusion> Atrial fibrillation Low voltage QRS Incomplete right bundle branch block ST & T wave abnormality, consider anterior ischemia or digitalis effect Abnormal ECG
--- NOTE | 2017-04-18 21:14 | PN ---
DATE: 04/18/2017 This is the patient's hospital visit on telemetry. For Dr. Waite. 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 The patient is now status post a rapid response after she was noted to have an phenomenon, po ssible TIA type episode, was unresponsive to verbal stimuli with mental status change. With this, th e patient had spontaneously awoke and said she was sleeping with the patient's EKG changes noted. With this, she is now resting comfortably with her niece at the bedside, in no acute distress. OBJECTIVE: PHYSICAL EXAMINATION: VITAL SIGNS: Temperature 98.5, pulse 80, respirations 20, blood pressure 147/70 with a pulse ox of 9 5%. HEENT: Unremarkable. Tongue is dry. NECK: Supple. HEART: Irregular, irregular. LUNGS: Decreased breath sounds. Occasional rhonchi. ABDOMEN: Obese, soft, and nontender. EXTREMITIES: +1 edema. NEUROLOGIC: Awake and alert. SKIN: Pale, pasty. LABORATORY DATA: The patient's labs were done. White blood cell count of 16.6, hemoglobin 10.2, hem atocrit 35.4, platelet count of 488,000 with a chem panel showing a potassium of 5.5 with a BUN of 86 , creatinine of 2.7. Troponin of 0.8 with a B-natriuretic peptide of 61,000. LDH of 4,200. AST of 45. The patient did have a CT scan of her head done at the time of the rapid response with the impression showing small vessel disease, no acute intracranial abnormality with a chest x-ray and EKG to be evaluated. ASSESSMENT: For this patient is that of decompensated congestive heart failure, possible TIA resolve d, history of atrial fibrillation, severe aortic stenosis, chronic kidney disease, myeloproliferative disorder, obesity, anemia of chronic disease. PLAN: After conversation with Dr. Waite and Dr. Hughes, we will continue the present medical john men with cardiology to follow up as with her cardiac condition to be monitored by Dr. Ellis with her troponin mildly elevated. We will monitor this along with EKG changes. At present, the pat ient will be asked about her living will and DNR status with an evaluation with Jossie camargo ed. We will monitor clinically and with labs. Prognosis for this patient unfortunately is guarded. Bruce Montano MD cc: [phone] TT: 04/18/2017 21:13:48 Confirmation # [id number] Dictation # [id number] mn
[2017-04-19 04:38] LABS: TROPONIN I 0.83 ng/mL
[2017-04-19 07:00] LABS: ALB/GLOB RATIO 1.4 (1.1-1.8); BILIRUBIN,TOTAL 0.7 mg/dL (0.2-1.3); CALCIUM 8.9 mg/dL (8.4-10.5); PHOSPHOROUS 4.8 mg/dL (2.5-4.5); TOTAL PROTEIN 6.3 g/dL (5.8-8.3)
[2017-04-19 07:10] LABS: MEAN CELL VOLUME 99.2 fL (80.0-105.0); MEAN CORPUSCULAR HEMOGLOBIN 28.3 pg (25.0-35.0); MEAN CORPUSCULAR HGB CONC 28.6 g/dl (31.0-37.0); MEAN PLATELET VOLUME 12.3 fl (7.0-11.0); RED CELL DISTRIBUTION WIDTH 20.9 % (11.5-14.5); WHITE BLOOD COUNT 15.2 10^3/ul (4.5-11.0)
[2017-04-19 07:44] LABS: POTASSIUM 5.6 mmol/L (3.6-5.0)
--- NOTE | 2017-04-19 07:53 | CP.PCM.PN ---
Subjective - Date & Time of Evaluation Date of Evaluation: 04/19/17 Time of Evaluation: 07:00 - Subjective Subjective: Stable on 2R. No CP or SOB. Events last 2 days noted. EGD cancelled. V/S noted. AF Lungs: clear Cor.: S1S2 Abd.: soft Ext.: + edema Neuro.: alert Labs noted: Cr. = 2.7, K+= 5.5, WBC 15,500, PL Ct. = [id number], trop=0.83, BNP = 0.83 BC x1 NG at [address] A/P noted: Anasarca, H-S omegaly, etc. CT head noted Objective - Vital Signs/Intake and Output Vital Signs (last 24 hours): Temp Pulse Resp BP Pulse Ox 97.9 F 82 20 122/68 92 L 04/19/17 06:00 04/19/17 06:00 04/19/17 06:00 04/19/17 06:00 04/19/17 06:00 Intake and Output: 04/19/17 04/19/17 06:59 18:59 Intake Total 240 Output Total 550 Balance -310 - Medications Medications: Current Medications Albumin Human (Albumin Human 25% (25 Gm/100 Ml)) 25 gm IV DAILY [facility] Stop: 04/20/17 21:01 Last Admin: 04/18/17 10:40 Dose: 25 gm Allopurinol (Zyloprim) 100 mg PO BID [facility] Last Admin: 04/18/17 18:14 Dose: 100 mg Aspirin (Aspirin) 325 mg PO DAILY [facility] Last Admin: 04/18/17 10:41 Dose: 325 mg Calcium Acetate (Phoslo) 667 mg PO WM [facility] Last Admin: 04/18/17 18:14 Dose: 667 mg Carvedilol (Coreg) 3.125 mg PO BID [facility] Last Admin: 04/18/17 18:14 Dose: 3.125 mg Ergocalciferol (Drisdol 50,000 Intl Units Cap) 1 cap PO Q7D [facility] Last Admin: 04/17/17 14:27 Dose: 1 cap Furosemide (Lasix) 40 mg IVP DAILY [facility] Losartan Potassium (Cozaar) 100 mg PO DAILY [facility] Last Admin: 04/14/17 11:30 Dose: 100 mg Pantoprazole Sodium (Protonix Ec Tab) 20 mg PO ACB [facility] Last Admin: 04/18/17 08:27 Dose: 20 mg - Labs Labs: 04/19/17 06:30 04/18/17 18:20 PT 13.2 Seconds (9.9-11.8) H 04/13/17 20:10 INR 1.22 (0.93-1.08) H 04/13/17 20:10 APTT 30.1 Seconds (23.7-30.8) 04/13/17 20:10 Assessment and Plan - Assessment and Plan (Free Text) Plan: Assessment: SOB Edema/Ascites/pleural effusions Hypotension, resolved AF Acute on CKD HBP Anemia Myeloproliferative disorder Gout DJD UTI's Cataracts Obesity Cirrhosis/Varices/Portal Gastropathy, etc. Echo 10/20: , Mild MR, Mod. TR, Mod PH and NL LV Plan: Try to diurese cautiously. Resume IV Lasix. Chavarria in place now>accurate outputs. As per Heme, GI and Renal Monitor: labs, accurate I/Os, renal fx., sats., etc.
[2017-04-19] MEDS: Pantoprazole 20 mg EC Tab PO SCH (08:44)
--- NOTE | 2017-04-19 09:08 | RAD ---
HISTORY: [employer] COMPARISON: 04/13/2017 FINDINGS: LUNGS: Again seen is pulmonary venous congestion. PLEURA: Probable small pleural effusions. No pneumothorax apparent. CARDIOVASCULAR: There is persistent moderate cardiomegaly. OSSEOUS STRUCTURES: No significant abnormalities. VISUALIZED UPPER ABDOMEN: Normal. OTHER FINDINGS: None. IMPRESSION: Persistent cardiomegaly and pulmonary venous congestion. Suspect small effusions. No lobar pneumonia.
[2017-04-19] MEDS ORDERED: POLYETHYLENE GLYCOL 3350 17 GM/Dose PACKET PO ONE (10:09)
--- NOTE | 2017-04-19 11:13 | PN ---
DATE: 04/19/2017 GI FOLLOWUP NOTE Seen and examined at the bedside earlier this morning. The patient denies any nausea, vomiting, shor tness of breath, chest pain, or abdominal pain. She did report having a bowel movement yesterday. N o reports of diarrhea for overt GI bleed. VITAL SIGNS: Her temperature is 97.9. Blood pressure is 122/68, pulse rate 82, respirations 20, 95 on nasal cannula. LABORATORY DATA: WBC is 15.2. Hemoglobin 10.0. Hematocrit is 35.0, platelets of 502. Sodium is 13 7. Her K is 5.6. BUN 87. Creatinine is 2.7. Her mag is 2.0. Liver enzymes, total bilirubin is 0. 7, AST 51, ALT 27. Alk phos is 79. LDH done earlier in the morning was 4138. She is noted to have elevated troponin. The patient went for a head CT yesterday for transient altered mental status, and that did show some mild atrophy and small-vessel disease. No acute intracranial abnormality. Chest x-ray is persistent cardiomegaly and pulmonary venous congestion - suspect small effusion. No lobar pneumonia. PHYSICAL EXAMINATION: HEENT: Sclerae are anicteric. NECK: Supple. CARDIAC: S1, S2. LUNGS: Lung sounds with decreased breath sounds, but good aeration, clear. ABDOMEN: With bowel sounds, softly obese, nontender. No rebound or guarding. EXTREMITIES: Positive bilateral edema, slightly looks a little less edematous than yesterday. ASSESSMENT: The patient with resolved hypotension. She has anemia, myeloproliferative disorder, shayy ma of lower extremities, ascites, and pleural effusion, atrial fibrillation. The patient with liver cirrhosis, history of varices and portal gastropathy. She also has a large hiatal hernia, 8 cm in si ze with history of Adan ulcers and antral ulcers. PLAN: We will continue GI prophylaxis. She is on Protonix 20 mg. The patient is on aspirin. She i s also getting Lasix. We will continue to monitor her H and H. Consider endoscopic evaluation when the patient is more optimal. At the time being, continue current medical regimen. The patient is al so on a bowel regimen. The patient is noted to have hyperkalemia, as per cardiology, renal. Continu e her diet as tolerated. The patient was seen and case discussed with Dr. Metzger. Sima CONNOR cc: [phone] TT: 04/19/2017 11:12:31 Confirmation # [id number] Dictation # [id number] jn
[2017-04-19] MEDS: Albumin Human 25% (25 gm/100 ml) IV SCH (11:31)
--- NOTE | 2017-04-19 11:55 | CP.PCM.CON ---
History of Present Illness - History of Present Illness History of Present Illness: Palliative consult requested by Dr Lana Montano Attending Dr Mirian Moncada Reason: Advance care planning 81 year old female who presented with dyspnea on exertion, lower extremity swelling,nausea and vomiting.She is admitted with decompensating CHF, lower extremity edema, hypotension, pre renal azotemia. PMHx: chronic atrial fibrillation,congestive heart failure, aortic stenosis, CKD , anemia, myeloproliferative disorder,gout. Family History: Non contributory. Social History: Non smoker, no alcohol or drug use. 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 Review of Systems: As per HPI,otherwise unremarkable. Past Patient History - Infectious Disease Hx of Infectious Diseases: None - Past Social History Smoking Status: Never Smoked - CARDIAC Hx Cardiac Disorders: Yes Hx Congestive Heart Failure: Yes Hx Hypercholesterolemia: No Hx Hypertension: Yes - PULMONARY Hx Chronic Obstructive Pulmonary Disease (COPD): No - NEUROLOGICAL HX Cerebrovascular Accident: No - HEENT Hx HEENT Problems: Yes Hx Blind: No Hx Cataracts: Yes Hx Deafness: No Hx Difficulty Chewing: No Hx Epistaxis: No Hx Glaucoma: No Hx Macular Degeneration: No - RENAL Hx Renal Failure: No - ENDOCRINE/METABOLIC Hx Diabetes Mellitus Type 1: No Hx Diabetes Mellitus Type 2: No Hx Hypothyroidism: No - HEMATOLOGICAL/ONCOLOGICAL Hx Blood Disorders: Yes Hx AIDS: No Hx Anemia: Yes Hx Cancer: No Hx Chemotherapy: No Hx Cirrhosis: No Hx Hemophilia: No Hx Hepatitis A: No Hx Hepatitis B: No Hx Hepatitis C: No Hx Human Immunodeficiency Virus (HIV): No Hx Metastesis: No Hx Shingles: No Hx Sickle Cell Disease: No Hx Unexplained Bleeding: No - INTEGUMENTARY Hx Dermatological Problems: No Hx Basil Cell: No Hx Eczema: No Hx Melanoma: No Hx Psoriasis: No Hx Squamous Cell: No - MUSCULOSKELETAL/RHEUMATOLOGICAL Hx Arthritis: Yes - GASTROINTESTINAL Hx Gastrointestinal Disorders: Yes (Nausea and vomiting) Hx Colostomy: No Hx Crohn's Disease: No Hx Diverticulitis: No Hx Gall Bladder Disease: No Hx Gastroesophageal Reflux: No Hx Ileostomy: No Hx Liver Failure: No Hx Pancreatitis: No HX Swallowing Problems: No Hx Ulcer: No - GENITOURINARY/GYNECOLOGICAL Hx Genitourinary Disorders: No Hx Hematuria: No Hx Incontinence: No Hx Sexually Transmitted Disorders: No Hx Urinary Tract Infection: No - PSYCHIATRIC Hx Psychophysiologic Disorder: No Hx Anxiety: No Hx Bipolar Disorder: No Hx Depression: No Hx Emotional Abuse: No Hx Hallucinations: No Hx Panic Symptoms: No Hx Paranoia: No Hx Post Traumatic Stress Disorder: No Hx Psychosis: No Hx Physical Abuse: No Hx Schizophrenia: No Hx Sexual Abuse: No - SURGICAL HISTORY Hx Surgeries: Yes (bilateral cataract removal) Hx Amputation: No Hx Appendectomy: No Hx Cardiac Catheterization: No Hx Cholecystectomy: No Hx Coronary Stent: No Hx Gastric Bypass Surgery: No Hx Hysterectomy: No Hx Joint Replacement: No Hx Kidney Transplant: No Hx Liver Transplant: No Hx Mastectomy: No Hx Musculoskeletal Surgery: No Hx Open Heart Surgery: No Hx Orthopedic Surgery: No Hx Splenectomy: No Hx Valve Replacement: No - ANESTHESIA Hx Anesthesia: Yes Hx Anesthesia Reactions: No Hx Malignant Hyperthermia: No Meds Allergies/Adverse Reactions: Allergies Allergy/AdvReac Type Severity Reaction Status Date / Time febuxostat Allergy RASH Verified 11/02/16 02:30 - Medications Medications: Current Medications Albumin Human (Albumin Human 25% (25 Gm/100 Ml)) 25 gm IV DAILY [facility] Stop: 04/20/17 21:01 Last Admin: 04/19/17 11:31 Dose: 25 gm Allopurinol (Zyloprim) 100 mg PO BID [facility] Last Admin: 04/19/17 11:31 Dose: 100 mg Aspirin (Aspirin) 325 mg PO DAILY [facility] Last Admin: 04/19/17 11:31 Dose: 325 mg Calcium Acetate (Phoslo) 667 mg PO WM [facility] Last Admin: 04/19/17 08:44 Dose: 667 mg Carvedilol (Coreg) 3.125 mg PO BID [facility] Last Admin: 04/18/17 18:14 Dose: 3.125 mg Ergocalciferol (Drisdol 50,000 Intl Units Cap) 1 cap PO Q7D [facility] Last Admin: 04/17/17 14:27 Dose: 1 cap Furosemide (Lasix) 40 mg IVP DAILY [facility] Losartan Potassium (Cozaar) 100 mg PO DAILY [facility] Last Admin: 04/14/17 11:30 Dose: 100 mg Pantoprazole Sodium (Protonix Ec Tab) 20 mg PO ACB [facility] Last Admin: 04/19/17 08:44 Dose: 20 mg Physical Exam - Constitutional Appears: Chronically Ill - Head Exam Head Exam: NORMAL INSPECTION - Eye Exam Eye Exam: Normal appearance, PERRL - Neck Exam Neck exam: Positive for: Normal Inspection - Respiratory Exam Respiratory Exam: Decreased Breath Sounds, NORMAL BREATHING PATTERN - Cardiovascular Exam Cardiovascular Exam: Irregular Rhythm, Systolic Murmur - GI/Abdominal Exam GI & Abdominal Exam: Normal Bowel Sounds, Soft - Extremities Exam Extremities exam: Positive for: pedal pulses present Additional comments: bilateral lower extremity edema - Back Exam Back exam: NORMAL INSPECTION - Neurological Exam Neurological exam: Alert, Oriented x3 - Skin Skin Exam: Dry, Pallor - Additional Findings Additional findings: Palliative performance scale rating 50 % Results - Vital Signs Recent Vital Signs: Last Vital Signs Temp 97.9 F 04/19/17 06:00 Pulse 82 04/19/17 06:00 Resp 20 04/19/17 06:00 BP 122/68 04/19/17 06:00 Pulse Ox 92 L 04/19/17 06:00 - Labs Result Diagrams: 04/19/17 06:30 04/19/17 06:30 Labs: Laboratory Results - last 24 hr 04/18/17 04/18/17 04/18/17 17:44 18:20 18:20 WBC 16.6 H RBC 3.56 Hgb 10.2 L Hct 35.4 L MCV 99.4 MCH 28.7 MCHC 28.8 L RDW 20.2 H Plt Count 488 H MPV 11.7 H Neutrophils % (Manual) 55 Band Neutrophils % 17 H* Lymphocytes % (Manual) 14 L Atypical Lymphs % 5 H Monocytes % (Manual) 7 H Eosinophils % (Manual) 1 Basophils % (Manual) 1 Platelet Evaluation High Large Platelets Present Anisocytosis (manual) 1+ Sodium 137 Potassium 5.5 H Chloride 104 Carbon Dioxide 25 Anion Gap 14 BUN 86 H Creatinine 2.7 H Est GFR ( Amer) 21 Est GFR (Non-Af Amer) 17 POC Glucose (mg/dL) 119 H Random Glucose 103 Calcium 8.9 Phosphorus Magnesium Total Bilirubin 0.7 AST 45 H ALT 26 Alkaline Phosphatase 73 Lactate Dehydrogenase 4221 H Total Creatine Kinase 43 Troponin I 0.86 H* D NT-Pro-B Natriuret Pep 41303 H Total Protein 6.4 Albumin 3.7 Globulin 2.7 Albumin/Globulin Ratio 1.4 04/19/17 04/19/17 04/19/17 02:30 06:30 06:30 WBC 15.2 H RBC 3.53 Hgb 10.0 L Hct 35.0 L MCV 99.2 MCH 28.3 MCHC 28.6 L RDW 20.9 H Plt Count 502 H MPV 12.3 H Neutrophils % (Manual) Band Neutrophils % Lymphocytes % (Manual) Atypical Lymphs % Monocytes % (Manual) Eosinophils % (Manual) Basophils % (Manual) Platelet Evaluation Large Platelets Anisocytosis (manual) Sodium 137 Potassium 5.6 H* Chloride 103 Carbon Dioxide 24 Anion Gap 16 BUN 87 H Creatinine 2.7 H Est GFR ( Amer) 21 Est GFR (Non-Af Amer) 17 POC Glucose (mg/dL) Random Glucose 99 Calcium 8.9 Phosphorus 4.8 H Magnesium 2.0 Total Bilirubin 0.7 AST 51 H ALT 27 Alkaline Phosphatase 79 Lactate Dehydrogenase 4138 H Total Creatine Kinase 41 Troponin I 0.83 H* NT-Pro-B Natriuret Pep Total Protein 6.3 Albumin 3.7 Globulin 2.6 Albumin/Globulin Ratio 1.4 Assessment & Plan - Assessment and Plan (Free Text) Assessment: 81 year old female admitted with decompensated CHF, atrial fibrillation, lower extremity edema, pre renal azotemia, CKD,deconditioning, debility The patient is alert, oriented and of pleasant demeanor. She lives independently. She denies nausea, vomiting but does admit to dyspnea on exertion. She has difficulty walking because her legs are swollen and ache. She does understand that her overall health is declining due to multiple medical issues. I was asked to speak with this patient about an advanced care plan. The patient has a Health Care Proxy dated 10/27/2016. In it she names Laisha Russ and Candy Earl as her health care representatives. The patient affirms that this document is valid and durable. I asked patient if she had specific wishes regarding resuscitation if her condition should worsen. Patient states she does not want CPR/intubation or mechanical ventilation. Her sister Laisha is present during our conversation. I also explained the purpose of initiating a POLST . Patient states she will do so prior to discharge. Mis spent with patient in advance care planning discussion, 30 minutes Plan: Advance Care Planning DNR/DNI
--- NOTE | 2017-04-19 11:56 | PN ---
DATE: 04/19/2017 SUBJECTIVE: The patient is seen lying in bed. She is awake. She is alert. She denies any pain. PHYSICAL EXAMINATION: GENERAL: Morbidly obese elderly lady lying in bed. VITAL SIGNS: Blood pressure 122/68, heart rate 82, respiratory rate 20, temperature 97.9. HEENT: Normocephalic, atraumatic. NECK: Supple, no JVD. LUNGS: Bilateral equal air entry, scattered rhonchi, no rales. CARDIAC: S1, S2, regular rate and rhythm, no murmur, no rub. ABDOMEN: Obese, distended, soft, nontender, bowel sounds present. EXTREMITIES: Trace lower extremity edema. INTAKE AND OUTPUT: 840/1015. LABORATORY DATA: WBC 15, hemoglobin 10, hematocrit 35, platelets 502. Sodium 137, potassium 5.6, ch loride 103, CO2 24, BUN 87, creatinine 2.7, glucose 99, calcium 8.9, phosphorus 4.8, magnesium 2.0, t roponin 0.86. Second set 0.83. Albumin 3.7. ASSESSMENT: 1. Chronic kidney disease stage IV. 2. Hyperkalemia. 3. Anemia, myelodysplastic syndrome, thrombocytosis. 4. History of hypertension, currently low blood pressure. 5. Congestive heart failure, severe pulmonary hypertension. 6. Ascites, pleural effusions. PLAN: 1. MiraLax 17 grams today. The patient is refusing Kayexalate. 2. Continue to diurese, agree with IV Lasix as per Dr. Howe. 3. EGD canceled yesterday. 4. The patient is opting for comfort care only, DNR/DNI noted. Bettie Elkins MD cc: [phone] TT: 04/19/2017 11:56:01 Confirmation # [id number] Dictation # [id number] rona
--- NOTE | 2017-04-19 17:55 | CON ---
DATE: 04/19/2017 CHIEF COMPLAINT: transient altered mental status. HISTORY OF PRESENT ILLNESS: This patient was seen and examined at bedside, is an 81-year-old woman w ith history of decompensated CHF, lower extremity edema, hypertension, prerenal azotemia, history of myelodysplastic syndrome, history of anemia secondary to myelodysplastic syndrome, history of ascites, pleural effusion, has history of severe pulmonary hypertension, who was brought in for short ness of breath and lower extremity swelling, nausea and vomiting and found to have a prerenal azotemi a, for which nephrology is on board. Had a transient change in her mental status, was lethargic and, therefore, I was consulted. Her CT head showed no acute intracranial abnormality. She does bryson d a transient drop in her blood pressures of 96/48, likely caused her symptoms. At this time, she is on aspirin for stroke prevention. She is moving all extremities, following commands. She still has some mild shortness of breath and mild decreased breath sounds on examination. PAST MEDICAL HISTORY: History of chronic kidney disease stage IV, anemia, history of hypertension, c urrently low blood pressure, and myelodysplastic syndrome, ascites, congestive heart failure, severe pulmonary hypertension. REVIEW OF SYSTEMS: A 14-point review of systems is negative except in the HPI. FAMILY HISTORY: Noncontributory. SOCIAL HISTORY: No illicit drug use, smoking, or ETOH abuse. ALLERGIES: ALLERGIC TO FEBUXOSTAT. MEDICATIONS: Reviewed via nursing reconciliation sheet. PHYSICAL EXAMINATION: VITAL SIGNS: Temperature 98.3, pulse rate of 83, blood pressure 96/48, respiratory rate of 18. GENERAL: The patient is sitting up in bed in no acute distress. HEENT: Atraumatic, normocephalic. PERRLA. Extraocular muscles intact. NECK: Supple, no JVD, no adenopathy noted. LUNGS: Clear to auscultation. No adventitious sounds. HEART: S1, S2. Normal rate and rhythm. No murmurs, rubs, or gallops. ABDOMEN: Soft, nontender, nondistended. Bowel sounds are present. EXTREMITIES: No clubbing, no cyanosis. Peripheral pulses 2+ felt bilaterally. NEUROLOGIC: The patient is alert, oriented to person, place, month and year. Recall after 5 minutes is 0/3. Poor attention span with slow thought process. Cranial nerves II through XII are intact. MOTOR: Moves all extremities equally. No pronator drift seen. SENSORY: Decreased light touch, pinprick, and proprioception bilaterally. Decreased vibration in the toes. DTRs are 2+ throughout and 1 at the knees and absent at the ankles. COORDINATION: Ttswmw-wv-eody intact. GAIT: Deferred for now. No tremors elicited. LABORATORIES: Sodium 137, potassium 5.6, chloride of 103, carbon dioxide 24, BUN of 87 and creatinin e 2.7, random glucose 99. ASSESSMENT AND PLAN: This is an 81-year-old woman with history of pulmonary hypertension and congest albert heart failure, history of myelodysplastic syndrome, history of chronic kidney disease stage IV, a scites, pleural effusion, came in for shortness of breath and decompensated congestive heart failure and was found to have lethargic mental status. I was called for consult. Transient altered mental sta tus is likely secondary to transient cerebral hypoperfusion to the brain from low systolic and diasto lic blood pressure superimposed on underlying toxic metabolic derangements causing transient metaboli c encephalopathy. At this time, I recommend: 1. Monitor electrolytes and correct accordingly. She is hyperkalemic today. Follow up with nephrolo gy recommendations. 2. Hydrate gentle, could considered IV Lasix to diurese but gentle, and watch out for electrolytes t hat need to be corrected. 3. Keep her systolic blood pressure above 110 mmHg. 4. Will need physical therapy/occupational therapy evaluation. Continue on current present medical management. Thank you for this consult. Please reconsult if ther e is any change in mental status. Loco Waters MD cc: [phone] TT: 04/19/2017 17:54:38 Confirmation # [id number] Dictation # [id number] ln
--- NOTE | 2017-04-19 21:32 | PN ---
DATE: 04/19/2017 ADDENDUM: This is an addendum to the GI progress report dictated by Sima Guevara APN. The patient is tolerating the diet, no vomiting. No complaints of any abdominal pain. Abdomen soft. I have discussed with Dr. Howe, the field adjuster, earlier today. This patient has multiple comorbid ities, history of pulmonary hypertension, CHF. Endoscopic evaluation was canceled earlier by anesthe siologist pending cardiac optimization. I did discuss with Dr. Waite also the plan is to hold off endoscopic evaluation for now. Continue to clinically monitor the patient. Thank you very much for allowing us to participate in the care of this patient. Jacek Metzger MD cc: [phone] TT: 04/19/2017 21:32:29 Confirmation # [id number] Dictation # [id number] pn
--- NOTE | 2017-04-19 22:20 | PN ---
DATE: 04/19/2017 This is the patient's hospital visit on the medical floor. For Dr. Waite. 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 The patient is status post rapid response with an abse nce phenomenon, possible TIA type episode and now patient is lethargic but mentally clear. With this , the patient is now requesting to have DNR/DNI orders written for her after conversation with Dr. Theresa saavedra, myself and Jossie Antoine RN. With this, the patient is otherwise in no acute distress this v isit. OBJECTIVE: VITAL SIGNS: Temperature 97.5, pulse 86, respirations 18, blood pressure 104/62 with a pulse ox of 9 2%. HEENT: Unremarkable. NECK: Supple. HEART: Irregularly irregular. LUNGS: Decreased breath sounds, rare rhonchi. ABDOMEN: Obese, soft. EXTREMITIES: With +1 edema. NEUROLOGIC: Lethargic but arousable. SKIN: Warm and dry. LABORATORY DATA: The patient's labs showed white blood cell count of 15.2, hemoglobin 10.0, hematocr it 35.0, platelet count 502,000 with a chem metabolic panel showing a potassium of 5.6 with a BUN of 87, creatinine of 2.7. Her troponin yesterday was 0.8, AST 51. Her blood cultures were negative after 4 days. Urine culture showed possible contamination. ASSESSMENT: Decompensated congestive heart failure; mental status change; possible transient ischemi c attack, resolved; history of atrial fibrillation; aortic stenosis, severe; chronic kidney disease; myeloproliferative disorder; obesity; anemia of chronic disease; deconditioning. PLAN: The plan for this patient, after conversation with Dr. Waite, is to continue present medical regimen. We will honor the patient's DNR/DNI request with the patient to continue present medical r egimen with an albumin continuing to be given as per Dr. Waite's protocol with Lasix given afterwar ds. We will monitor clinically and with labs. Prognosis for this patient is guarded. Bruce Montano MD cc: [phone] TT: 04/19/2017 22:19:13 Confirmation # [id number] Dictation # [id number] ln
[2017-04-20 03:06] VITALS: O2SAT 95
[2017-04-20 06:30] LABS: MEAN CORPUSCULAR HEMOGLOBIN 28.3 pg (25.0-35.0); MEAN CORPUSCULAR HGB CONC 29.2 g/dl (31.0-37.0); MEAN PLATELET VOLUME 11.9 fl (7.0-11.0); PLATELET COUNT 529 10^3/uL (120.0-450.0); RED CELL DISTRIBUTION WIDTH 20.8 % (11.5-14.5)
[2017-04-20 06:42] LABS: ADD MANUAL DIFF? YES
[2017-04-20 06:50] LABS: ALB/GLOB RATIO 1.4 (1.1-1.8); BILIRUBIN,TOTAL 0.7 mg/dL (0.2-1.3); CALCIUM 9.2 mg/dL (8.4-10.5); POTASSIUM 5.1 mmol/L (3.6-5.0); TOTAL PROTEIN 6.5 g/dL (5.8-8.3)
[2017-04-20 06:59] LABS: BAND 9 % (0-2); EOSINOPHIL 1 % (0.0-3.0); METAMYELOCYTE 2 %; MYELOCYTE 6 %; NEUTROPHIL 58 % (50.0-70.0)
[2017-04-20 07:00] LABS: PLATELET ESTIMATE HIGH (NORMAL)
[2017-04-20 07:01] LABS: ANISOCYTOSIS 1+; POIKILOCYTOSIS 1+
--- NOTE | 2017-04-20 08:07 | CP.PCM.PN ---
Subjective - Date & Time of Evaluation Date of Evaluation: 04/20/17 Time of Evaluation: 07:00 - Subjective Subjective: stable on 2R. No CP or SOB. V/S noted. AF Lungs: clear Cor.: S1S2 Abd.: soft Ext.: + edema Neuro.: alert Labs noted: Cr. = 2.5, K+= 5.1, WBC 19,000, PL Ct. = 096341 BC x1 NG at [address] A/P noted: Anasarca, H-S omegaly, etc. CT head noted Objective - Vital Signs/Intake and Output Vital Signs (last 24 hours): Temp Pulse Resp BP Pulse Ox 97.7 F 86 20 109/62 95 04/20/17 06:00 04/20/17 06:00 04/20/17 06:00 04/20/17 06:00 04/20/17 06:00 Intake and Output: 04/20/17 04/20/17 06:59 18:59 Intake Total 360 Output Total 600 Balance -240 - Medications Medications: Current Medications Albumin Human (Albumin Human 25% (25 Gm/100 Ml)) 25 gm IV DAILY [facility] Stop: 04/20/17 21:01 Last Admin: 04/19/17 11:31 Dose: 25 gm Allopurinol (Zyloprim) 100 mg PO BID [facility] Last Admin: 04/19/17 17:59 Dose: 100 mg Aspirin (Aspirin) 325 mg PO DAILY [facility] Last Admin: 04/19/17 11:31 Dose: 325 mg Calcium Acetate (Phoslo) 667 mg PO WM [facility] Last Admin: 04/19/17 17:59 Dose: 667 mg Carvedilol (Coreg) 3.125 mg PO BID [facility] Last Admin: 04/19/17 17:59 Dose: 3.125 mg Ergocalciferol (Drisdol 50,000 Intl Units Cap) 1 cap PO Q7D [facility] Last Admin: 04/17/17 14:27 Dose: 1 cap Furosemide (Lasix) 40 mg IVP DAILY [facility] Last Admin: 04/19/17 12:43 Dose: 40 mg Losartan Potassium (Cozaar) 100 mg PO DAILY [facility] Last Admin: 04/14/17 11:30 Dose: 100 mg Pantoprazole Sodium (Protonix Ec Tab) 20 mg PO ACB [facility] Last Admin: 04/19/17 08:44 Dose: 20 mg - Labs Labs: 04/20/17 05:45 04/20/17 05:45 PT 13.2 Seconds (9.9-11.8) H 04/13/17 20:10 INR 1.22 (0.93-1.08) H 04/13/17 20:10 APTT 30.1 Seconds (23.7-30.8) 04/13/17 20:10 Assessment and Plan - Assessment and Plan (Free Text) Plan: Assessment: SOB Edema/Ascites/pleural effusions Hypotension, resolved AF Acute on CKD HBP Anemia Myeloproliferative disorder Gout DJD UTI's Cataracts Obesity Cirrhosis/Varices/Portal Gastropathy, etc. Echo 10/20: , Mild MR, Mod. TR, Mod PH and NL LV DNR/DNI Plan: Try to diurese cautiously. Continue IV Lasix. Chavarria in place now>accurate outputs. As per Heme, GI, neuro., palliative care, and renal. Monitor: labs, accurate I/Os, renal fx., sats., etc.
[2017-04-20] MEDS: Pantoprazole 20 mg EC Tab PO SCH (08:26)
[2017-04-20] MEDS: Albumin Human 25% (25 gm/100 ml) IV SCH (10:27)
--- NOTE | 2017-04-20 10:30 | IP.NPCORE ---
Heart Failure Core Measure - Heart Failure Left Ventricular Function to be assessed after discharge: Yes PERRY Inhibitor Prescribed: Yes Contraindication/Reason for not providing: held for hieu Beta-Tom Prescribed: Carvedilol Angiotensin II Receptor Tom Prescribed: No Contraindication/Reason for not providing: acute renal failure AnticoagulationTherapy for Atrial Fibrillation/Atrialflutter: No Contraindication/Reason for not providing: n/a Aldosterone Antagonist Prescribed: No Contraindication/Reason for not providing: hypotensive and hieu Hydralazine Nitrate Prescribed: No Contraindication/Reason for not providing: hypotensive Implantable Cardioverter Defibrillator Therapy: No Contraindication/Reason for not providing: n/a- pt dnr. dni wants comfort care only Cardiac Resynchronization Therapy Prescribed: No Contraindication/Reason for not providing: n/a- pt dnr. dni wants comfort care only - Follow up Will be discharged to: Nursing Home Facility Follow Up Date (must be within 7 days from discharge): 04/27/17 Follow Up Time: 09:00
--- NOTE | 2017-04-20 11:07 | PN ---
DATE: 04/20/2017 SUBJECTIVE: The patient is seen lying in bed. She is awake. She is alert. She is comfortable. Sh e appears mildly short of breath. PHYSICAL EXAMINATION: GENERAL: Obese elderly lady lying in bed. VITAL SIGNS: Blood pressure 111/58, heart rate 82, respiratory rate 20, temperature 97.7. HEENT: Normocephalic, atraumatic, positive pallor. NECK: Supple, no JVD. LUNGS: Bilateral equal air entry, bilateral rhonchi. CARDIAC: S1, S2, regular rate and rhythm, positive murmur, no rub. ABDOMEN: Obese, distended, soft, nontender, bowel sounds present. EXTREMITIES: 2+ pitting edema of the lower extremities. INTAKE AND OUTPUT: 360/600. LABORATORY DATA: WBC 19, hemoglobin 10.5, hematocrit 36, platelets 529. Sodium 137, potassium 5.1, chloride 102, CO2 24, BUN 84, creatinine 2.5, glucose 99, calcium 9.2, AST 56, ALT 25, albumin 3.8. CURRENT MEDICATIONS: Albumin 25 grams daily, aspirin, Coreg, Cozaar on hold, Lasix 40 IV daily, Phos Lo, Protonix, Zyloprim. ASSESSMENT: 1. Acute kidney injury superimposed on chronic kidney disease stage III/IV. 2. Congestive heart failure, cardiomyopathy, pulmonary hypertension. 3. Hyperkalemia, improved. 4. Myeloproliferative disorder. 5. Leukocytosis. This is new. 6. Hypertension. PLAN: 1. Continue albumin and Lasix. 2. Monitor potassium. 3. The patient refusing Kayexalate. 4. Agree with palliative care, patient choice. 5. Discharge planning. Bettie Elkins MD cc: [id number] TT: 04/20/2017 11:07:22 Confirmation # [id number] Dictation # [id number]
[2017-04-20 11:54] VITALS: BP 109/57; PULSE 85; RESP 18; TEMP 98.5
[2017-04-20] MEDS ORDERED: Darbepoetin Alfa 40 mcg/ml Inj SC ONE (14:16)
[2017-04-20] MEDS ORDERED: POLYETHYLENE GLYCOL 3350 17 GM/Dose PACKET PO SCH (16:30)
--- NOTE | 2017-04-20 17:27 | PN ---
DATE: 04/20/2017 Seen and examined at the bedside earlier today. The patient denies any nausea, vomiting and no abdom inal pain. She did not have a bowel movement today. She believes it has been a few days now. No re ports of abdominal pain. She is tolerating oral intake. Denies any shortness of breath or chest sherrie n. VITAL SIGNS: Temperature is 97.7, blood pressure was 111/58, pulse 82 and respirations 18. LABORATORY DATA: WBC is 19.0, H and H 10.5 and 36.0 with platelets of 529. Sodium is 137 and K is 5 .1. This is better. BUN 84 and creatinine is 2.5. Total bilirubin is 0.7, AST 56, ALT 25 and alk p hos is 75. PHYSICAL EXAMINATION: HEENT: Sclerae is anicteric. CARDIAC: S1, S2. LUNGS: Sounds with decreased breath sounds at the bases, but good air entry. No rales or wheeze. ABDOMEN: With bowel sounds, soft, distended and nontender. EXTREMITIES: Positive bilateral edema and negative for calf tenderness. ASSESSMENT: This patient with acute renal injury with history of chronic kidney disease, resolved, n ausea and vomiting, some hypotension, anemia, history of myeloproliferative disorder, constipation, a trial fibrillation, history of varices and portal gastropathy. 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 The patient has a large hiatal hernia, history of Adan u lcers and antral ulcers. PLAN: The patient now is DNR/DNI. The patient with multiple comorbidities and history of hypertensi on. No plan for endoscopic evaluation at this time. Continue current diet, which she is tolerating. She did receive a dose of MiraLAX yesterday. Her potassium is elevated, but it is improved today. Will start patient on daily MiraLAX and titrate and hold for stools greater than 2. The case discus sed with Dr. Metzger, who was covering rounds today. Sima Jenkinses NIKOLAS cc: [id number] TT: 04/20/2017 17:26:01 Confirmation # [id number] Dictation # [id number]
[2017-04-23] MEDS ORDERED: metOLazone 2.5 MG TAB PO SCH (10:00)
--- NOTE | 2017-04-23 14:16 | PQF CHF ---
This form is a permanent part of the medical record Doctor, Clarification of your documentation is requested to better reflect the severity of illness and intensity of treatment of your patient. Indicators present pt was presented with decompensated CHF. Please specify the type and severity of CHF. Please see below the physician's response for the choices. Thank you. [x] Diagnosis of CHF and/or history of CHF [x] BNP > 200 [] Imaging Finding of Pulmonary Edema /Pleural Effusions [] Fluid/Volume Overload [] Pitting edema [] Ejection Fraction < 40% (Indicative of Systolic Heart Failure) [] Ejection Fraction > 40% (Indicative of Diastolic Heart Failure) [] Dyspnea / Orthopenea / Paroxysmal Nocturnal Dyspnea [] Other: Location in the medical record that reflects the above clinical findings: [] Treatment Provided: [] PHYSICIAN'S RESPONSE Based on your medical judgment of the clinical indicators outlined above, are you treating this patient for a known or suspected: [] Acute CHF [] Systolic [] Diastolic [] Combined [] Chronic CHF [] Systolic [] Diastolic [] Combined [] Acute on Chronic CHF []Systolic [] Diastolic [] Combined [] CHF due hypertension [] Acute systolic []Chronic systolic [] Acute/ chronic systolic [] Other, please indicate: [] [] If Unable to Determine, please check the box, sign and date. Present On Admission (POA) Indicator: [] Present at the time of admission [] Not present at the time of admission [] Clinically Undetermined In responding to this query, please exercise your independent professional judgment. The fact that a question is asked does not imply that any particular answer is desired or expected. Thank you for your clarification on this documentation. 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
== END 2017-04-20 17:15 | DRG 291 ==
LOC: ED 19:22 → ERH 04-14 00:03 → 2RNO 04-14 02:36 → OBSVTOIN 04-16 15:56
PROVIDERS: ADMIT Family Medicine; ATTEND Family Medicine
DX: I13.0 Hypertensive heart and chronic kidney disease with heart failure and stage 1 through stage 4 chronic kidney disease, or unspecified chronic kidney disease (principal); G92 Toxic encephalopathy; R18.8 Other ascites; I85.10 Secondary esophageal varices without bleeding; N17.9 Acute kidney failure, unspecified; N18.4 Chronic kidney disease, stage 4 (severe); N25.81 Secondary hyperparathyroidism of renal origin; Z68.42 Body mass index [BMI] 45.0-49.9, adult; I50.9 Heart failure, unspecified; K25.9 Gastric ulcer, unspecified as acute or chronic, without hemorrhage or perforation; I42.9 Cardiomyopathy, unspecified; I27.2 Other secondary pulmonary hypertension; I95.9 Hypotension, unspecified; K74.60 Unspecified cirrhosis of liver; E87.5 Hyperkalemia; I48.2 Chronic atrial fibrillation; K76.1 Chronic passive congestion of liver; K59.00 Constipation, unspecified; K44.9 Diaphragmatic hernia without obstruction or gangrene; K21.9 Gastro-esophageal reflux disease without esophagitis; M19.90 Unspecified osteoarthritis, unspecified site; M10.9 Gout, unspecified; D50.9 Iron deficiency anemia, unspecified; D46.9 Myelodysplastic syndrome, unspecified; H26.9 Unspecified cataract; E83.39 Other disorders of phosphorus metabolism; Z66 Do not resuscitate; I08.3 Combined rheumatic disorders of mitral, aortic and tricuspid valves; E55.9 Vitamin D deficiency, unspecified; E66.01 Morbid (severe) obesity due to excess calories; Z79.82 Long term (current) use of aspirin